=== PATIENT | female | born 1990 | race African-American/Black ===

== ENCOUNTER → 2016-12-26 | Outpatient (CLI) | payer MEDICAID ==
[~2016-12-26] MED LIST: CLAR5CHW; DEPO-PROVERA; IBUP600T26 PO; PRENTAB44 PO; PROV90AE; REME15TA
== END | disposition home or self-care (01) ==
LOC: M OUTALCOH 08:54
PROVIDERS: ATTEND Psychiatry & Neurology Psychiatry
DX: Z13.9 Encounter for screening, unspecified (principal); F14.10 Cocaine abuse, uncomplicated

== ENCOUNTER 2017-01-08 16:00 | Outpatient (RCR) | payer MEDICAID | END 2017-01-15 | LOC: M OUTALCOH 16:00 | PROVIDERS: ATTEND Psychiatry & Neurology Psychiatry | DX: F10.10 Alcohol abuse, uncomplicated (principal); F14.10 Cocaine abuse, uncomplicated; F12.10 Cannabis abuse, uncomplicated ==

== ENCOUNTER → 2017-03-28 | Outpatient (CLI) | payer MEDICAID | LOC: M OUTALCOH 08:14 | PROVIDERS: ATTEND Psychiatry & Neurology Psychiatry | DX: Z13.9 Encounter for screening, unspecified (principal); F14.20 Cocaine dependence, uncomplicated; F10.10 Alcohol abuse, uncomplicated; F12.10 Cannabis abuse, uncomplicated ==

== ENCOUNTER 2017-04-10 13:00 | Outpatient (RCR) | payer MEDICAID | END 2017-04-17 | LOC: M OUTALCOH 13:00 | PROVIDERS: ATTEND Psychiatry & Neurology Psychiatry | DX: F14.20 Cocaine dependence, uncomplicated (principal); F10.10 Alcohol abuse, uncomplicated; F12.10 Cannabis abuse, uncomplicated ==

== ENCOUNTER → 2017-05-17 | Outpatient (RCR) | payer MEDICAID ==
[~2017-05-17] MED LIST changes: +IBUP-1022 PO; -IBUP600T26 PO
== END ==
LOC: M OUTALCOH 04-24 16:00
PROVIDERS: ATTEND Psychiatry & Neurology Psychiatry
DX: F14.20 Cocaine dependence, uncomplicated (principal); F10.10 Alcohol abuse, uncomplicated; F12.10 Cannabis abuse, uncomplicated

== ENCOUNTER 2017-06-13 14:00 | Outpatient (RCR) | payer MEDICAID | END 2017-06-17 | LOC: M OUTALCOH 14:00 | PROVIDERS: ATTEND Psychiatry & Neurology Psychiatry | DX: F14.20 Cocaine dependence, uncomplicated (principal); F10.10 Alcohol abuse, uncomplicated; F12.10 Cannabis abuse, uncomplicated ==

== ENCOUNTER → 2017-10-09 | Outpatient (REF) | payer OTHER | LOC: M LAB REF 16:34 | PROVIDERS: ATTEND Surgery | DX: Z20.2 Contact with and (suspected) exposure to infections with a predominantly sexual mode of transmission (principal) ==

== ENCOUNTER → 2017-10-29 | Outpatient (CLI) | payer OTHER ==
[~2017-10-29] MED LIST changes: +GASTROGRAFIN SOLUTION 30ML (Q9963) As Ordered ONE; +ISOVUE-370 76% 100ML VIAL (Q9967) As Ordered ONE
[2017-10-29 11:58] LABS: BASO # 0.1 10^3/uL (0.0-0.2); BASO % 1.2 % (0.0-1.0); EOS # 0.2 10^3/uL (0.0-0.50); EOS % 4.6 % (0.0-3.0); IMMATURE GRANULOCYTE % 0.2 % (0-0); LYMPH # 1.7 10^3/uL (1.5-6.5); LYMPH % 41.7 % (24.0-44.0); MEAN CORPUSCULAR HEMOGLOBIN 33.8 pg (27.0-33.0); MEAN CORPUSCULAR HGB CONC 33.5 g/dl (32.0-36.5); MEAN CORPUSCULAR VOLUME 100.9 fl (80.0-96.0); MONO # 0.3 10^3/uL (0.0-0.8); MONO % 7.8 % (0.0-5.0); NEUTROPHILS # 1.8 10^3/uL (1.8-7.7); NEUTROPHILS % 44.5 % (36.0-66.0); PLATELET COUNT, AUTOMATED 245 10^3/uL (150-450); RED CELL DISTRIBUTION WIDTH 14.9 % (11.5-14.5); WHITE BLOOD COUNT 4.1 10^3/uL (4.0-10.0)
[2017-10-29 12:34] LABS: ALBUMIN 3.5 GM/DL (3.2-5.2); ALBUMIN/GLOBULIN RATIO 1.03 (1.00-1.93); ALKALINE PHOSPHATASE 51 U/L (45-117); ALT/SGPT 22 U/L (12-78); ANION GAP 9 MEQ/L (8-16); AST/SGOT 7 U/L (7-37); BILIRUBIN,TOTAL 0.3 MG/DL (0.2-1.0); BLOOD UREA NITROGEN 10 MG/DL (7-18); CALCIUM LEVEL 8.7 MG/DL (8.5-10.1); CARBON DIOXIDE LEVEL 25 MEQ/L (21-32); CHLORIDE LEVEL 107 MEQ/L (98-107); CREATININE FOR GFR 0.68 MG/DL (0.55-1.02); GLOMERULAR FILTRATION RATE > 60.0 (>60); GLUCOSE, FASTING 84 MG/DL (70-105); POTASSIUM SERUM 4.3 MEQ/L (3.5-5.1); SODIUM LEVEL 141 MEQ/L (136-145); TOTAL PROTEIN 6.9 GM/DL (6.4-8.2)
[2017-10-29 12:37] LABS: CARCINOEMBRYONIC ANTIGEN 1.3 NG/ML (<2.5)
--- NOTE | 2017-10-29 14:59 | REP ---
CT of the abdomen and pelvis with IV and bowel contrast: Comparison is 12/11 2006. The visualized lung lyles are unremarkable. The hepatic parenchyma, gallbladder, pancreas and spleen are unremarkable. The adrenals, kidneys and abdominal aorta are unremarkable. There is no bowel distension or obstruction. Mesentery is unremarkable. The appendix has a normal appearance. Pelvis: The uterus and adnexa are unremarkable. There are no adnexal masses or cysts, particularly on the left. There is no ascites. The urinary bladder is markedly distended. There is a air / gas in the rectum and vaginal vault. Impression: Essentially negative CT study of the abdomen and pelvis except for markedly distended bladder. There are no adnexal masses or cysts. No bowel distension or obstruction. The appendix has a normal appearance. The gallbladder is unremarkable. Signed by Steve Redd MD 10/29/2017 02:51 P
== END ==
LOC: M LAB 10:53
PROVIDERS: ATTEND Physician Assistant Medical
DX: R19.04 Left lower quadrant abdominal swelling, mass and lump (principal)

== ENCOUNTER → 2017-10-31 | Outpatient (REF) | payer OTHER ==
[~2017-10-31] MED LIST changes: -GASTROGRAFIN SOLUTION 30ML (Q9963) As Ordered ONE; -ISOVUE-370 76% 100ML VIAL (Q9967) As Ordered ONE
== END ==
LOC: M LAB REF 13:33
PROVIDERS: ATTEND Physician Assistant Medical
DX: R33.8 Other retention of urine (principal)

== ENCOUNTER → 2018-01-14 | Outpatient (REF) | payer OTHER ==
[2018-01-14 18:55] LABS: LITHIUM LEVEL 0.27 MEQ/L (0.60-1.20)
== END ==
LOC: M LAB REF 16:23
DX: Z51.81 Encounter for therapeutic drug level monitoring (principal)

== ENCOUNTER → 2018-06-12 | Outpatient (REF) | payer OTHER ==
[2018-06-12 13:36] LABS: AMORPHOUS SEDIMENT SMALL (NEGATIVE); APPEARANCE, URINE CLOUDY (CLEAR); BACTERIA, URINE AUTO 1+ (NEGATIVE); BILIRUBIN, URINE AUTO NEGATIVE (NEGATIVE); BLOOD, URINE BLOOD 2+ (NEGATIVE); COLOR, URINE YELLOW (YELLOW); GLUCOSE, URINE (UA) AUTO NEGATIVE (NEGATIVE); KETONE, URINE AUTO NEGATIVE (NEGATIVE); LEUKOCYTE ESTERASE, URINE AUTO 3+ (NEGATIVE); MUCUS, URINE SMALL (NEGATIVE); NITRITE, URINE AUTO NEGATIVE (NEGATIVE); PROTEIN, URINE AUTO 2+ mg/dL (NEGATIVE); RBC, URINE AUTO 57 /HPF (0-3); SPECIFIC GRAVITY URINE AUTO 1.027 (1.002-1.035); SQUAMOUS EPITHELIAL CELL UR AU 5 /HPF (0-6); TRANSITIONAL EPITHELIAL AUTO 11 /HPF; UROBILINOGEN, URINE AUTO 0.2 mg/dL (0.0-2.0); WBC, URINE AUTO TNTC /HPF (0-3)
== END ==
LOC: M LAB REF 13:05
DX: N39.0 Urinary tract infection, site not specified (principal)

== ENCOUNTER → 2019-03-31 | Outpatient (REF) | payer OTHER ==
[2019-03-31 19:15] LABS: APPEARANCE, URINE CLEAR (CLEAR); BACTERIA, URINE AUTO NEGATIVE (NEGATIVE); BILIRUBIN, URINE AUTO NEGATIVE (NEGATIVE); BLOOD, URINE BLOOD NEGATIVE (NEGATIVE); COLOR, URINE YELLOW (YELLOW); GLUCOSE, URINE (UA) AUTO NEGATIVE (NEGATIVE); KETONE, URINE AUTO NEGATIVE (NEGATIVE); LEUKOCYTE ESTERASE, URINE AUTO NEGATIVE (NEGATIVE); NITRITE, URINE AUTO NEGATIVE (NEGATIVE); PROTEIN, URINE AUTO NEGATIVE (NEGATIVE); RBC, URINE AUTO 0 /HPF (0-3); SPECIFIC GRAVITY URINE AUTO 1.015 (1.002-1.035); SQUAMOUS EPITHELIAL CELL UR AU 2 /HPF (0-6); UROBILINOGEN, URINE AUTO 0.2 mg/dL (0.0-2.0); WBC, URINE AUTO 1 /HPF (0-3)
== END ==
LOC: M LAB REF 17:31
PROVIDERS: ATTEND Nurse Practitioner Family
DX: Z13.9 Encounter for screening, unspecified (principal)

== ENCOUNTER → 2019-04-28 | Outpatient (REF) | payer OTHER ==
[2019-04-28 18:23] LABS: BASO # 0.1 10^3/uL (0.0-0.2); BASO % 1.3 % (0.0-1.0); EOS # 0.4 10^3/uL (0.0-0.50); EOS % 9.4 % (0.0-3.0); HEMATOCRIT 42.4 % (36.0-47.0); HEMOGLOBIN 14.1 g/dl (12.0-15.5); LYMPH # 2.1 10^3/uL (1.5-4.5); LYMPH % 54.2 % (24.0-44.0); MEAN CORPUSCULAR HGB CONC 33.3 g/dl (32.0-36.5); MEAN CORPUSCULAR VOLUME 102.2 fl (80.0-96.0); MONO # 0.2 10^3/uL (0.0-0.8); MONO % 5.1 % (0.0-5.0); NEUTROPHILS # 1.2 10^3/uL (1.8-7.7); PLATELET COUNT, AUTOMATED 264 10^3/uL (150-450); RED BLOOD COUNT 4.15 10^6/uL (4.00-5.40); WHITE BLOOD COUNT 3.9 10^3/uL (4.0-10.0)
[2019-04-28 18:34] LABS: ALBUMIN 3.8 GM/DL (3.2-5.2); ALT/SGPT 14 U/L (12-78); BILIRUBIN,TOTAL 0.3 MG/DL (0.2-1.0); BLOOD UREA NITROGEN 6 MG/DL (7-18); CARBON DIOXIDE LEVEL 24 MEQ/L (21-32); CHLORIDE LEVEL 108 MEQ/L (98-107); CHOLESTEROL LEVEL 163 MG/DL (<200); CHOLESTEROL RISK RATIO 2.716 (<5); CREATININE FOR GFR 0.87 MG/DL (0.55-1.30); FREE T4 0.86 NG/DL (0.76-1.46); GLOMERULAR FILTRATION RATE > 60.0 (>60); GLUCOSE, FASTING 98 MG/DL (70-100); HDL CHOLESTEROL 60 MG/DL (>40); LDL CHOLESTEROL 78 MG/DL (<100); NON-HDL-C 103 MG/DL; POTASSIUM SERUM 4.1 MEQ/L (3.5-5.1); SODIUM LEVEL 139 MEQ/L (136-145); THYROID STIMULATING HORMONE 0.206 uIU/ML (0.358-3.740); TOTAL PROTEIN 7.5 GM/DL (6.4-8.2); TRIGLYCERIDES LEVEL 125 MG/DL (<150)
[2019-04-28 18:35] LABS: TOTAL 25(OH) VITAMIN D 17.4 NG/ML (30.0-100.0)
[2019-04-28 19:42] LABS: HEMOGLOBIN A1c 4.9 %
== END ==
LOC: M LAB REF 17:01
PROVIDERS: ATTEND Nurse Practitioner Family
DX: Z13.9 Encounter for screening, unspecified (principal)

== ENCOUNTER 2019-08-01 07:11 | Emergency (ER) | payer OTHER ==
[~2019-08-01] VITALS: Ht 157.5 cm; Wt 50.0 kg
[2019-08-01] MEDS ORDERED: WELLTAB40 PO (07:23)
[2019-08-01] MEDS ORDERED: GABA800T4 PO (07:23)
[2019-08-01] MEDS ORDERED: OLAN10TA2 PO (07:23)
[2019-08-01] MEDS ORDERED: TRAZ1TAB14 PO (07:23)
[2019-08-01] MEDS ORDERED: mirtazapine (07:23)
[2019-08-01] MEDS ORDERED: ACETAMINOPHEN 325 MG TAB PO ONE (08:00)
--- NOTE | 2019-08-01 09:46 | REP ---
CT BRAIN WITHOUT CONTRAST: REASON: Trauma. COMPARISON: 12/09/2015 TECHNIQUE: 4.5 mm contiguous transaxial sections were obtained from the skull base to the cerebral convexities with thin cuts through the posterior fossa without the administration of intravenous contrast. FINDINGS: The ventricles and sulci are consistent with the patient's age. There are no extra-axial fluid collections. There is no mass effect. The deep cerebral white matter is consistent with the patient's age. The orbital and petrous structures , cerebellopontine angles, and posterior fossa are unremarkable. The sella turcica, cavernous, and paracavernous structures are essentially unremarkable. The visualized portions of the paranasal sinuses and mastoid air cells are clear. Images of the skull base show no gross abnormality. IMPRESSION: Essentially unremarkable CT examination of the brain. No change. Electronically Signed by Wicho Monique DO 08/01/2019 09:49 A
--- NOTE | 2019-08-01 09:47 | REP ---
REASON: Pain in the neck. Vertebral body height and alignment is within normal limits. The facet joints are well aligned bilaterally. The disc spaces are symmetric and well maintained. There is no acute fracture. There is no abnormal paraspinal soft tissue swelling. IMPRESSION: CT findings are within normal limits. Electronically Signed by Wicho Monique DO 08/01/2019 09:49 A
[2019-08-01 10:30] VITALS: BP 99/65
[2019-08-01] MEDS ORDERED: IBUP80TA PO (10:35)
[2019-08-01] MEDS ORDERED: PROAAER10 INH (10:40)
--- NOTE | 2019-08-01 10:57 | REP ---
KNEE: REASON: Pain, possible patellar fracture. FINDINGS: The compartments are symmetric and relatively well maintained. There is no acute fracture or destructive osseous lesion. Electronically Signed by Wicho Monique DO 08/01/2019 11:24 A
--- NOTE | 2019-08-01 10:58 | REP ---
REASON: Pain. FINDINGS: No acute fracture or destructive osseous lesion. Electronically Signed by Wicho Monique DO 08/01/2019 11:24 A
== END 2019-08-01 10:53 | disposition home or self-care (01) ==
LOC: M ED 07:11
DX: R51 Headache (principal); M79.631 Pain in right forearm; M25.561 Pain in right knee; M25.552 Pain in left hip; Z72.89 Other problems related to lifestyle; V17.4XXA Pedal cycle driver injured in collision with fixed or stationary object in traffic accident, initial encounter; Y92.410 Unspecified street and highway as the place of occurrence of the external cause; R42 Dizziness and giddiness; H53.2 Diplopia; J45.909 Unspecified asthma, uncomplicated; H57.89 Other specified disorders of eye and adnexa; Z87.828 Personal history of other (healed) physical injury and trauma; F17.200 Nicotine dependence, unspecified, uncomplicated; Z79.899 Other long term (current) drug therapy

== ENCOUNTER 2019-08-05 03:08 | Emergency (ER) | payer OTHER ==
[~2019-08-05] VITALS: Ht 157.5 cm; Wt 50.0 kg
[~2019-08-05 03:08] MED LIST changes: +GABA800T4; +IBUP80TA PO; +OLAN10TA2; +PROAAER10 INH; +TRAZ1TAB14; +WELLTAB40; +mirtazapine
[2019-08-05 03:10] VITALS: BP 108/69
== END 2019-08-05 04:45 | disposition left against medical advice (07) ==
LOC: M ED 03:08
DX: M25.561 Pain in right knee (principal); J45.909 Unspecified asthma, uncomplicated; F17.200 Nicotine dependence, unspecified, uncomplicated; Z79.899 Other long term (current) drug therapy

== ENCOUNTER 2019-10-21 16:10 | Inpatient (IN) | payer OTHER ==
[~2019-10-21] VITALS: Ht 157.5 cm; Wt 49.4 kg
[~2019-10-21 16:10] MED LIST changes: -GABA800T4; +GABA800T4 PO; -OLAN10TA2; +OLAN10TA2 PO; -TRAZ1TAB14; +TRAZ1TAB14 PO; -WELLTAB40; +WELLTAB40 PO
[2019-10-21] MEDS ORDERED: BENZ-52 PO (16:15)
[2019-10-21] MEDS ORDERED: VANCOMYCIN HCL 1,000 MG, VIAL MATE ADAPTER 1 EACH in D5W 250 ML IV ONE (16:30)
[2019-10-21] MEDS ORDERED: NS 1,400 ML in IV 1 EA IV ONE (16:30)
[2019-10-21] MEDS ORDERED: KETOROLAC 30 MG/ML VIAL (J1885) IV ONE (16:45)
[2019-10-21 17:04] LABS: BASO # 0.1 10^3/uL (0.0-0.2); BASO % 0.5 % (0.0-1.0); EOS # 0.3 10^3/uL (0.0-0.5); EOS % 2.9 % (0.0-3.0); HEMATOCRIT 43.5 % (36.0-47.0); HEMOGLOBIN 14.2 g/dl (12.0-15.5); LYMPH # 1.9 10^3/uL (1.5-5.0); LYMPH % 18.9 % (24.0-44.0); MEAN CORPUSCULAR HGB CONC 32.6 g/dl (32.0-36.5); MEAN CORPUSCULAR VOLUME 101.2 fl (80.0-96.0); MONO # 0.5 10^3/uL (0.0-0.8); MONO % 4.9 % (0.0-5.0); NEUTROPHILS # 7.4 10^3/uL (1.5-8.5); NEUTROPHILS % 72.5 % (36.0-66.0); PLATELET COUNT, AUTOMATED 506 10^3/uL (150-450); WHITE BLOOD COUNT 10.3 10^3/uL (4.0-10.0)
--- NOTE | 2019-10-21 17:08 | REP ---
Clinical: Sepsis. Shock. . Comparison: 01/29/2006 . Findings: The mediastinum and cardiac silhouette are stable and within normal limits for portable technique. The lung lyles are clear without acute consolidation, effusion, or pneumothorax. Skeletal structures are intact. Impression: No acute cardiopulmonary process appreciated. Electronically Signed by Genaro Winters MD 10/21/2019 04:59 P
[2019-10-21] MEDS ORDERED: LORA-436 PO (17:31)
[2019-10-21] MEDS ORDERED: MIRT1TAB17 PO (17:31)
[2019-10-21] MEDS ORDERED: VENTAER INH (17:31)
[2019-10-21 17:55] LABS: ERYTHROCYTE SEDIMENTATION RATE 56 mm/hr (0-20)
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
[2019-10-21 18:20] LABS: VENOUS BASE EXCESS -3.5 (-2.0-2.0); VENOUS HCO3 21.5 MEQ/L (23.0-27.0); VENOUS O2 SATURATION 93.2 % (60.0-80.0); VENOUS PARTIAL PRESSURE CO2 38.8 mmHg (38.0-50.0); VENOUS PARTIAL PRESSURE O2 63.7 mmHg (30.0-50.0); VENOUS PH 7.361 UNITS (7.330-7.430); VENOUS STANDARD HCO3 21.5 MEQ/L; VENOUS TOTAL CO2 22.7 MEQ/L (24.0-28.0)
--- NOTE | 2019-10-21 19:18 | REP ---
Clinical: Central line placement . Comparison: 10/21/2019 at 04:52 p.m. . Findings: Right IJ line with tip in the SVC. The mediastinum and cardiac silhouette are stable and within normal limits for portable technique. The lung lyles are clear without acute consolidation, effusion, or pneumothorax. Skeletal structures are intact. Impression: No acute cardiopulmonary process appreciated. Electronically Signed by Genaro Winters MD 10/21/2019 07:09 P
--- NOTE | 2019-10-21 19:28 | ROOPDOC ---
[facility] Report Of Operation Report of Operation DATE OF PROCEDURE: 10/21/19 PREPROCEDURE DIAGNOSES: Poor venous access POSTPROCEDURE DIAGNOSES: Poor venous access PROCEDURE: Right IJ central line placement Performed by: Tia Jovel D.O. Attending: Julian Lockett M.D. ANESTHESIA: local ESTIMATED BLOOD LOSS: Approximately 0 mL. COMPLICATIONS: none PROCEDURE NOTE: Consent was obtained prior to the procedure. Indications, risks and benefits were explained to the patient. Procedure was performed at bedside in the emergency department. DESCRIPTION OF PROCEDURE: The patient was placed in the supine position, was placed in Trendelenburg. The right chest region and neck was prepped with chlorhexidine scrub. The patient was draped in the typical sterile fashion using a full drape. Ultrasonography was employed at bedside. A sterile probe cover was placed over the ultrasound. The medial and lateral head of the sternocleidomastoid were identified, as was the carotid pulse. The internal jugular vein was identified using ultrasound. Anesthesia was achieved over the internal jugular vein on the right using a 1% lidocaine solution. Once anesthetized, an introducer needle was inserted into the internal jugular vein under direct ultrasound visualization. Venous blood was withdrawn, syringe was removed and a guidewire was advanced on to the introducer needle. The guidewire was visualized in the internal jugular vein by ultrasound. A small incision was made in the skin surface with a scalpel, and the introducer needle was exchanged for a dilator over the guidewire. After appropriate dilation was obtained, the dilator was exchanged over the wire for a central venous catheter. The wire was removed, and the catheter was sutured in place. A sterile bandage was placed over the catheter site. The patient tolerated the procedure well without any hemodynamic compromise. At the time of procedure completion, all ports were aspirated and flushed properly. Postprocedure x-ray was performed, which demonstrated adequate positioning of the central venous catheter in the right internal jugular vein. GME ATTESTATION GME ATTESTATION My faculty preceptor for this patient encounter was physically present during the encounter and was fully available. All aspects of the patient interview, examination, medical decision making process, and medical care plan development were reviewed and approved by the faculty preceptor. The faculty preceptor is aware and concurs with the plan as stated in the body of this note and will attest to such by his/her cosignature. TIA JOVEL D.O. Oct 21, 2019 19:28
[2019-10-21] MEDS ORDERED: MORPHINE 2 MG/ML 1ML VIAL (J2270) IV PRN (19:30)
--- NOTE | 2019-10-21 19:34 | HPEPDOC ---
[facility] Medical History & Physical Date of Admission Oct 21, 2019 Date of Service: Oct 21, 2019 Attending Physician: ALYSSA GARCIA MD History and Physical CHIEF COMPLAINT: Left arm pain and swelling HISTORY OF PRESENT ILLNESS: 29-year-old female with past medical history of IV drug use, anemia, presents from home with arm pain and swelling after attempting IV drug use a few weeks ago. She reports it was her first time doing IV drugs, 3 weeks ago, she missed her veins and injected into her skin, multiple locations in both arms. She reports worsening left arm pain, swelling and tightness with associated numbness and tingling in the fingertips starting a few days ago along with chills. She denies any fever, denies history of bacteremia or endocarditis. She denies any short of breath, chest pain, nausea, vomiting, abdominal pain or diarrhea at this time. 10 point review of system is negative except for above PAST MEDICAL HISTORY: 1. Anemia. 2. IV drug use. 3. Partial substance-abuse. PAST SURGICAL HISTORY: 1. 3. SOCIAL HISTORY: Smokes couple cigarettes daily. Denies alcohol use. Does dean, previously did cocaine. FAMILY HISTORY: Mother with malignancy ALLERGIES: Please see below. HOME MEDICATIONS: Please see below. PHYSICAL EXAMINATION: VITAL SIGNS: Please see below. GENERAL: Mild distress HEENT: Normocephalic, atraumatic, dry mucous membranes NECK: Supple CARDIOVASCULAR EXAMINATION: Tachycardic RESPIRATORY EXAMINATION: Clear to auscultation, no wheezing ABDOMINAL EXAMINATION: Soft, nontender, nondistended, positive bowel sounds EXTREMITIES: Left forearm with diffuse swelling, erythema and tenderness to palpation with multiple track noble, no drainage SKIN: As listed above NEUROLOGICAL EXAMINATION: Alert and oriented 3, no focal deficits PSYCHIATRIC EXAMINATION: Calm and cooperative LABORATORY DATA: See below. IMAGING: Left arm ultrasound with diffuse edema, no abscess MICROBIOLOGY: Please see below. ASSESSMENT: 29-year-old female with past medical history of polysubstance abuse, IV drug use, anemia, presents with diffuse left upper extremity cellulitis after IV drug use a few weeks ago. PLAN: 1. Cellulitis. History of IV drug use, diffuse left upper extremity with significant tenderness to palpation, ultrasound without abscess, MRI pending, vancomycin and Zosyn, cultures pending, IV fluids. 2. Anxiety/depression. Continue home meds DVT per flexes: Heparin subcutaneous GI prophylaxis: Not needed Vital Signs Vital Signs Date Time Temp Pulse Resp B/P (MAP) Pulse Ox O2 Delivery O2 Flow Rate FiO2 10/21/19 16:49 10/21/19 16:10 96.0 120 20 99 Laboratory Data Labs 24H Laboratory Tests 2 10/21/19 16:42: Immature Granulocyte % (Auto) 0.3, Neutrophils (%) (Auto) 72.5H, Lymphocytes (%) (Auto) 18.9L, Monocytes (%) (Auto) 4.9, Eosinophils (%) (Auto) 2.9, Basophils (%) (Auto) 0.5, Neutrophils # (Auto) 7.4, Lymphocytes # (Auto) 1.9, Monocytes # (Auto) 0.5, Eosinophils # (Auto) 0.3, Basophils # (Auto) 0.1, Nucleated Red Blood Cells % (auto) 0.0, Erythrocyte Sedimentation Rate 56H, Lactic Acid Level 2.1*H 10/21/19 18:03: Blood Gas Bicarbonate Standard 21.5, Venous Blood pH 7.361, Venous Blood Partial Pressure CO2 38.8, Venous Blood Partial Pressure O2 63.7H, Venous Blood Total Carbon Dioxide 22.7L, Venous Blood HCO3 21.5L, Venous Blood Oxygen Saturation 93.2H, Venous Blood Base Excess -3.5L CBC/BMP Laboratory Tests 10/21/19 16:42 Microbiology Microbiology 10/21/19 Blood Culture, Received Pending 10/21/19 Blood Culture, Received Pending Home Medications Scheduled Benztropine Mesylate (Benztropine Mesylate) 1 Mg Tablet, 1 MG PO QHS Bupropion HCl (Wellbutrin Xl) 300 Mg Tab.er.24h, 300 MG PO DAILY Gabapentin (Gabapentin) 800 Mg Tablet, 800 MG PO TID Loratadine (Loratadine) 10 Mg Tablet, 10 MG PO DAILY Mirtazapine (Mirtazapine) 45 Mg Tab.rapdis, 45 MG PO QHS Olanzapine (Olanzapine) 10 Mg Tablet, 10 MG PO QHS Trazodone HCl (Trazodone HCl) 150 Mg Tablet, 150 MG PO QHS Scheduled PRN Albuterol Sulfate (Ventolin Hfa) 18 Gm Hfa.aer.ad, 2 PUFF INH Q4H PRN for SOB/WHEEZING Allergies Coded Allergies: No Known Allergies (Verified , 12/12/06) A-FIB/CHADSVASC A-FIB History Current/History of A-Fib/PAF?: No ALYSSA GARCIA MD Oct 21, 2019 19:34
[2019-10-21 20:45] VITALS: BP 126/64
[2019-10-21] MEDS: GABAPENTIN 400 MG CAP PO SCH (22:20)
[2019-10-21] MEDS: ENOXAPARIN 40 MG/0.4 ML SYRINGE (J1650) SC SCH (22:20)
[2019-10-21] MEDS: traZODone 50 MG TAB PO SCH (22:20)
[2019-10-21] MEDS: PIPERACILLIN/TAZOBACTAM SOD 3.375 GM in D5W MINI-BAG PLUS 50 ML IV SCH (22:20)
[2019-10-21 22:35] LABS: ALBUMIN 3.4 GM/DL (3.2-5.2); ALT/SGPT 28 U/L (12-78); BILIRUBIN,DIRECT < 0.1 MG/DL (0.0-0.2); BILIRUBIN,TOTAL 0.2 MG/DL (0.2-1.0); BLOOD UREA NITROGEN 5 MG/DL (7-18); C REACTIVE PROTEIN QUANTITATIV 5.34 MG/DL (0.00-0.30); CALCIUM LEVEL 8.8 MG/DL (8.5-10.1); CARBON DIOXIDE LEVEL 25 MEQ/L (21-32); CHLORIDE LEVEL 108 MEQ/L (98-107); CREATININE FOR GFR 0.85 MG/DL (0.55-1.30); GLOMERULAR FILTRATION RATE > 60.0 (>60); GLUCOSE, FASTING 81 MG/DL (70-100); POTASSIUM SERUM 4.3 MEQ/L (3.5-5.1); SODIUM LEVEL 139 MEQ/L (136-145)
--- NOTE | 2019-10-21 22:42 | PHACANCOPD ---
PHARMACY VANCOMYCIN DOSING Pt Demographics Demographics Patient Age:29 , Weight:47.700 , Gender: female Adjusted Body Weight Date: 10/21/19, Adjusted Body Weight: Kg Events Past 24 Hours Events Past 24 Hours: NO: Dialysis, Diuretic Therapy, Change in CrCl, Fever, Elevation in WBC, Pending Diagnostics, Pending Procedures, Other Vancomycin Vancomycin Target Ranges: 15-20 mcg/ml Vancomycin Load Y/N: Yes Load Dose Date Time Vancomycin Load Dose: 1000mg Date: 10-21 Time: 1900 Vancomycin Dose Date: 10/21/19. Current Vancomycin Dose: [750mg q8h] Intermittent Dosing?: No Labs Labs Item Value Date Time White Blood Count 10.3 10^3/uL H 10/21/19 1642 Glomerular Filtration Rate > 60.0 10/21/19 1803 Creatinine 0.85 MG/DL 10/21/19 1803 Blood Urea Nitrogen 5 MG/DL L 10/21/19 1803 Vital Signs Label Value Date Time Patient Temperature 98.5 degrees F 10/21/192044 Temperature Source Temporal 10/21/192044 Micro Microbiology 10/21/19 Blood Culture, Received Pending 10/21/19 Blood Culture, Received Pending Creatinine Clearance Date:10/21/19. Creatinine Clearance: [~80]. Pending Labs Trough - @1900 Assessment and Plan Maintaining Current Dose?: Yes Reason for dose change: No Dose Change Pharmacist Note Pharmacist Note Date: 10/21/19. Pharmacist note:Will monitor and make adjustments as needed. SHAKEEL SHAFFER [facility]ARMAC[facility] Oct 21, 2019 22:42
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
[2019-10-21] MEDS: OLANZapine 10 MG TAB PO SCH (22:58)
[2019-10-21] MEDS: BENZTROPINE 1 MG TAB PO SCH (22:59)
[2019-10-22] VITALS (7 sets, daily range): BP systolic 90–112; BP diastolic 40–68
[2019-10-22] MEDS: PIPERACILLIN/TAZOBACTAM SOD 3.375 GM in D5W MINI-BAG PLUS 50 ML IV SCH ×4 (03:03→22:06)
[2019-10-22] MEDS: VANCOMYCIN HCL 750 MG, VIAL MATE ADAPTER 1 EACH in D5W 250 ML IV SCH ×3 (04:09→20:46)
[2019-10-22] MEDS: SODIUM CHLORIDE 0.9% INJ 10 ML SYR IV SCH ×3 (05:29→23:43)
[2019-10-22] MEDS ORDERED: KETOROLAC 30 MG/ML VIAL (J1885) IV ONE (05:30)
[2019-10-22 05:42] LABS: HEMATOCRIT 36.1 % (36.0-47.0); MEAN CORPUSCULAR HEMOGLOBIN 32.2 pg (27.0-33.0); MEAN CORPUSCULAR HGB CONC 31.9 g/dl (32.0-36.5); MEAN CORPUSCULAR VOLUME 101.1 fl (80.0-96.0); PLATELET COUNT, AUTOMATED 427 10^3/uL (150-450); RED BLOOD COUNT 3.57 10^6/uL (4.00-5.40); WHITE BLOOD COUNT 11.9 10^3/uL (4.0-10.0)
[2019-10-22 05:47] LABS: HEMOGLOBIN 11.5 g/dl (12.0-15.5)
[2019-10-22 06:13] LABS: ALBUMIN 2.7 GM/DL (3.2-5.2); ALT/SGPT 21 U/L (12-78); BILIRUBIN,TOTAL 0.4 MG/DL (0.2-1.0); BLOOD UREA NITROGEN 5 MG/DL (7-18); CALCIUM LEVEL 7.9 MG/DL (8.5-10.1); CARBON DIOXIDE LEVEL 24 MEQ/L (21-32); CHLORIDE LEVEL 111 MEQ/L (98-107); CREATININE FOR GFR 0.94 MG/DL (0.55-1.30); GLOMERULAR FILTRATION RATE > 60.0 (>60); GLUCOSE, FASTING 118 MG/DL (70-100); MAGNESIUM LEVEL 2.1 MG/DL (1.8-2.4); POTASSIUM SERUM 4.2 MEQ/L (3.5-5.1); SODIUM LEVEL 142 MEQ/L (136-145); TOTAL PROTEIN 6.3 GM/DL (6.4-8.2)
[2019-10-22] MEDS: LORATADINE 10 MG TAB PO SCH (08:22)
[2019-10-22] MEDS: GABAPENTIN 400 MG CAP PO SCH ×3 (08:22→20:02)
[2019-10-22] MEDS: buPROPion **XL** TABLET 150MG (WELLBUTRIN XL) PO SCH (08:22)
[2019-10-22] MEDS: SODIUM CHLORIDE 0.9% INJ 10 ML SYR IV PRN (08:25)
[2019-10-22] MEDS: LR 1,000 ML IV SCH ×2 (08:51→17:11)
--- NOTE | 2019-10-22 14:29 | CR ---
DATE OF CONSULTATION: 10/22/2019 CONSULTATION REQUESTANT: HISTORY OF PRESENT ILLNESS: This is a 29-year-old female was admitted yesterday for a chief complaint of left arm pain and swelling which she reports progressed over the last 3 days uneventfully. She has a history of IV drug use, she reports her first attempt to use IV drugs was 3 weeks ago. States that she injected multiple locations in both of her arms. She is reporting increased pain, swelling at the hand, forearm and beyond her elbow. States there is tingling in her fingers but she can feel them. She was evaluated by Dr. Julian Lockett, on 10/21/2019. ALLERGIES: None known to drugs. PAST MEDICAL HISTORY: Polysubstance abuse. IV drug use, although she states her first IV drug use was just 3 weeks ago. Anemia. Pelvic inflammatory disease. Asthma. Pneumonia. Depression. Anxiety. Alcohol abuse. She is a smoker. Dry skin. Documented history of Methicillin-resistant Staphylococcus aureus (MRSA) back 2013. Psychiatric problems, schizophrenia. PAST SURGICAL HISTORY: Includes: Colposcopy on 11/18/2006 due to abnormal Pap smear. 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 SOCIAL HISTORY: Includes poly drug abuse, although states 3 weeks ago she was a first-time IV drug user. Smokes cigarettes daily. Denies ethanol intake. She has three children and lives locally. HOME MEDICATIONS: Include: - albuterol sulfate 18 gm HFA.AER.AD 2 puffs INH q.4 h p.r.n. - benztropine mesylate 1 mg tablet 1 mg p.o. q.h.s. - Wellbutrin XL 300 mg tab ER 24 hours 300 mg p.o. daily - gabapentin 800 mg p.o. t.i.d. - loratadine 10 mg p.o. daily - mirtazapine 45 mg p.o. q.h.s. - olanzapine 10 mg p.o. q.h.s. - trazodone HCL 150 mg p.o. q.h.s. REVIEW OF SYSTEMS: A 10-point review of system was negative except for what was noted in history and physical. The patient denies fever, chills, malaise, shortness of breath, dyspnea on exertion, chest pain, nausea, vomiting, abdominal pain, diarrhea or history of sepsis. As of 10/21/2019 white count 10.3, RBC 4.30, hemoglobin 14.2. Hematocrit 43.5. MCV 101.2. MCH 33.0. MCHC 32.6. RDW 13.6. Platelet count 506. Immature gran percentage auto 0.3. Neutrophil percentage auto 72.5. Lymph percentage 18.9. [place] percentage 4.9. Eosinophil percentage 2.9. Basophil percentage 0.5. Neutrophil number 7.4. Lymph number 1.9. [place] number 0.5. Eosinophil number 0.3. Baso number 0.1. Nucleated RBC percentage is 0.0. ESR 56. Subsequent labs on 10/22/2019 showed elevated white count 11.9. RBC 3.57. Hemoglobin 11.5. Hematocrit 36.1. MCV 101.1. MCH 32.2. MCHC 31.9. RDW 13.6. Platelet count 427. Blood gas bicarb standard 21.5. VBG pH 7.361. PCO2 38.8. PO2 63.7. HCO3 21.5. Total CO2 is 22.7. O2 saturation 93.2. Base excess -3.7. Chemistry sodium 142, potassium 4.2. Chloride 111, carbon dioxide 24. Anion gap 7, BUN 5, creatinine 0.94, GFR greater than 60. Fasting glucose 118. Calcium 7.9. Magnesium 2.1, total bilirubin 0.4. AST 5, ALT 21, alkaline phosphatase 78. Total protein 6.3, albumin 2.7, albumin-globulin ratio 0.75. Microbiology pending blood cultures, that is blood venous cultures as of 10/21/2019. IMAGING STUDIES: Left arm ultrasound with diffuse edema. MRI was completed 10/21/[address] [facility] showing severe edematous cellulitis and myositis with excessive fluid accumulation throughout the imaged forearm extending both proximally and distally beyond field of imaging into the arm and wrist. Severe tenosynovitis within the superficial ventral tendinous structures predominantly involving the flexor carpi radialis, including focal fluid collection within the tendon sheath in the distal forearm with recommended orthopedic consultation as read by Dr. Meño Jimenez. PHYSICAL EXAMINATION: Vital signs as of 10/22/2019 at 1200, temperature temporal 98.7, pulse 84, respiratory rate 17, blood pressure 100/58, which is trending positive from her last blood pressure at 0800 at 90/50. Pulse oximetry 98 at room air. GENERAL: The patient is resting in bed with her left arm being favored. She was actually sleeping. It took several times to wake her up with just mild distress as she became more alert. HEENT: Normocephalic, atraumatic. NECK: Supple. CARDIOVASCULAR: Chest rises symmetrically. RESPIRATORY: Clear to auscultation. ABDOMINAL EXAMINATION: Soft, nondistended, nontender times four. Left upper extremity diffuse edema noted at the forearm and hand. She has several well demarcated old ulcer areas consistent with where there were attempts to inject. No drainage. This extremity is warm to touch. Radial pulse 2+. Brisk capillary refill. She can wiggle her fingers, flex and extend without gross antalgia or limitation. She is tender to palpation about the distal forearm, most notable about the carpal tunnel region. No pain to palpation about the elbow, which she was able to flex and extend. She was able to wrap her fingers around my index and middle finger. She has no notable contracture palsy or gross atrophy. She is intact to light touch. Bilateral comparison was made which shows contrasting lack of swelling but also additional track noble. Skin as noted. NEUROLOGIC EXAMINATION: She is alert and orientated times three without focal defect. PSYCHIATRIC EXAMINATION: She is rather calm, very cooperative, but lethargic. She denies any recent drug use. ASSESSMENT Left arm, forearm, hand pain and edema over 3 days in a 32-year-old female with past history of polysubstance abuse, IV drug use and a left upper extremity cellulitis. Question of a secondary compartment syndrome. PLAN: 1. Cellulitis. She will continue her current course of IV antibiotics, culture is pending, elevation of arm above heart level with a warm nonrestrictive heating pad. Further diagnostic considerations include compartment testing. Will continue close observation for increasing pain, increased swelling, firmness of tissues or any inkling of the six P's which would then require urgent orthopedic consultation for consideration of compartment release. 2. Blood pressure management. Thank you for allowing me to participate in Ms. Aranda's care. [facility]
--- NOTE | 2019-10-22 17:56 | ECGEPIP ---
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
--- NOTE | 2019-10-22 18:03 | IPNPDOC ---
Date Seen The patient was seen on 10/22/19. Progress Note HISTORY OF PRESENT ILLNESS: 29-year-old female with past medical history of IV drug use, anemia, presents from home with arm pain and swelling after attempting IV drug use a few weeks ago. She reports it was her first time doing IV drugs, 3 weeks ago, she missed her veins and injected into her skin, multiple locations in both arms. She reports worsening left arm pain, swelling and tightness with associated numbness and tingling in the fingertips starting a few days ago along with chills. She denies any fever, denies history of bacteremia or endocarditis. She denies any short of breath, chest pain, nausea, vomiting, abdominal pain or diarrhea at this time. 10/22/2019 Patient continues to have significant left forearm pain, swelling, along with tingling of fingertips. She has a complex at this time, tolerating diet. 10 point review of system is negative except for above PHYSICAL EXAMINATION: VITAL SIGNS: Please see below. GENERAL: No distress HEENT: Normocephalic, atraumatic, moist mucous membranes NECK: Supple CARDIOVASCULAR EXAMINATION: Tachycardic RESPIRATORY EXAMINATION: Clear to auscultation, no wheezing ABDOMINAL EXAMINATION: Soft, nontender, nondistended, positive bowel sounds EXTREMITIES: Left forearm with diffuse swelling, erythema and tenderness to palpation with multiple track noble, no drainage SKIN: As listed above NEUROLOGICAL EXAMINATION: Alert and oriented 3, no focal deficits PSYCHIATRIC EXAMINATION: Calm and cooperative LABORATORY DATA: See below. IMAGING: Left arm ultrasound with diffuse edema, no abscess MICROBIOLOGY: Please see below. ASSESSMENT: 29-year-old female with past medical history of polysubstance abuse, IV drug use, anemia, presents with diffuse left upper extremity cellulitis after IV drug use a few weeks ago. PLAN: 1. Cellulitis. History of IV drug use, diffuse left upper extremity with significant tenderness to palpation, MRI with significant edema, myositis, tenosynovitis, orthopedic surgery consulted, continue vancomycin and Zosyn, cultures pending, IV fluids. 2. Anxiety/depression. Continue home meds DVT per flexes: Lovenox GI prophylaxis: Not needed VS, I&O, 24H, Fishbone Vital Signs/I&O Vital Signs Date Time Temp Pulse Resp B/P (MAP) Pulse Ox O2 Delivery O2 Flow Rate FiO2 10/22/19 14:40 98.6 100 21 110/68 (82) 100 Room Air I&O- Last 24 Hours up to 6 AM 10/22/19 06:00 Intake Total 1665 ml Output Total 1025 ml Balance 640 ml Laboratory Data 24H LABS Laboratory Tests 2 10/21/19 18:03: Blood Gas Bicarbonate Standard 21.5, Venous Blood pH 7.361, Venous Blood Partial Pressure CO2 38.8, Venous Blood Partial Pressure O2 63.7H, Venous Blood Total Carbon Dioxide 22.7L, Venous Blood HCO3 21.5L, Venous Blood Oxygen Saturation 93.2H, Venous Blood Base Excess -3.5L, Anion Gap 6L, Glomerular Filtration Rate > 60.0, Calcium Level 8.8, Total Bilirubin 0.2, Direct Bilirubin < 0.1, Aspartate Amino Transf (AST/SGOT) 10, Alanine Aminotransferase (ALT/SGPT) 28, Alkaline Phosphatase 101, C-Reactive Protein, Quantitative 5.34H, Total Protein 8.0, Albumin 3.4, Albumin/Globulin Ratio 0.74L 10/21/19 21:22: Lactic Acid Followup at 4 Hours 1.2 10/22/19 05:32: Anion Gap 7L, Glomerular Filtration Rate > 60.0, Calcium Level 7.9L, Total Bilirubin 0.4#, Aspartate Amino Transf (AST/SGOT) 5L, Alanine Aminotransferase (ALT/SGPT) 21, Alkaline Phosphatase 78, Total Protein 6.3#L, Albumin 2.7#L, Albumin/Globulin Ratio 0.75L, Nucleated Red Blood Cells % (auto) 0.0, Magnesium Level 2.1 10/22/19 14:02: Total Creatine Kinase 102 CBC/BMP Laboratory Tests 10/21/19 18:03 10/22/19 05:32 Microbiology Microbiology 10/21/19 Blood Culture, Received Pending 10/21/19 Blood Culture - Preliminary, Resulted No growth after 24 hours . All specim... ALYSSA GARCIA MD Oct 22, 2019 18:03
--- NOTE | 2019-10-22 18:16 | IPN ---
DATE OF CONSULTATION: 10/22/2019 She has been seen earlier today by her physician assistant professor, Contreras Parker. She complains of left upper extremity discomfort. On examination, her appearance, she is comfortable. She is sleeping. I was able wake her up. Up waking her up, she was able to call down to dietary to request her meal. Then I briefly examined her. She has got swelling in the left upper extremity. There is no active drainage. The skin is soft. She seems to be sensitive. I can passively move the fingers. She complains of pain but they seem to be sensate on examination today. MRI: I also reviewed the MRI reflecting some myositis and/or edema. IMPRESSION: This does not seem to be consistent with compartment syndrome. She has a cellulitis, myositis secondary to issues as mentioned previously. I recommend continued IV antibiotics, elevation on multiple pillows, K-pad hearing with a damp towel, reevaluation for efficacy of medication/vancomycin as well as blood cultures when they are available. I would not recommend open debridement at this time.
[2019-10-22] MEDS: OLANZapine 10 MG TAB PO SCH (20:02)
[2019-10-22] MEDS: BENZTROPINE 1 MG TAB PO SCH (20:03)
[2019-10-22] MEDS: traZODone 50 MG TAB PO SCH (20:04)
[2019-10-22] MEDS: ENOXAPARIN 40 MG/0.4 ML SYRINGE (J1650) SC SCH (20:05)
--- NOTE | 2019-10-22 20:29 | PHACANCOPD ---
PHARMACY VANCOMYCIN DOSING Pt Demographics Demographics Patient Age:29 , Weight:49.400 , Gender: female Adjusted Body Weight Date: 10/21/19, Adjusted Body Weight: Kg Events Past 24 Hours Events Past 24 Hours: NO: Dialysis, Diuretic Therapy, Change in CrCl, Fever, Elevation in WBC, Pending Diagnostics, Pending Procedures, Other Vancomycin Vancomycin indication: CELLULITIS Vancomycin Target Ranges: 15-20 mcg/ml Vancomycin Load Y/N: Yes Load Dose Date Time Vancomycin Load Dose: 1000mg Date: 10-21 Time: 1900 Vancomycin Dose Date: 10/21/19. Current Vancomycin Dose: [1000mg q8h] Intermittent Dosing?: No Labs Labs Item Value Date Time White Blood Count 10.3 10^3/uL H 10/21/19 1642 White Blood Count 11.9 10^3/uL H 10/22/19 0532 Creatinine 0.85 MG/DL 10/21/19 1803 Creatinine 0.94 MG/DL 10/22/19 0532 Vancomycin Level Trough 10.1 UG/ML 10/22/19 1827 Micro Microbiology 10/21/19 Blood Culture - Preliminary, Resulted No growth after 24 hours . All specim... 10/21/19 Blood Culture - Preliminary, Resulted No growth after 24 hours . All specim... Creatinine Clearance Date:10/22/19. Creatinine Clearance: [74ML/MIN]. Date:10/21/19. Creatinine Clearance: [~80]. Pending Labs Trough 10-23 @1900 Assessment and Plan Maintaining Current Dose?: No Reason for dose change: Trough too low Pharmacist Note Pharmacist Note Date: 10/22/19. Pharmacist note: PT trough came back at 10.1mcg/ml tonight prior to the 4th. Dosing will be changed to 1g IV every 8 hours starting 10/23/19 @04:00. A trough is scheduled for 10/23/19 @19:00. We will continue to monitor and adjust the dose as needed. Date: 10/21/19. Pharmacist note:Will monitor and make adjustments as needed. [facility] Oct 22, 2019 20:29
[2019-10-23] MEDS: PIPERACILLIN/TAZOBACTAM SOD 3.375 GM in D5W MINI-BAG PLUS 50 ML IV SCH ×4 (01:58→21:21)
[2019-10-23] MEDS: VANCOMYCIN HCL 1,000 MG, VIAL MATE ADAPTER 1 EACH in D5W 250 ML IV SCH ×3 (03:35→19:54)
[2019-10-23] MEDS: SODIUM CHLORIDE 0.9% INJ 10 ML SYR IV SCH ×3 (05:13→22:00)
[2019-10-23] MEDS: LR 1,000 ML IV SCH (05:14)
[2019-10-23 05:41] LABS: HEMATOCRIT 30.4 % (36.0-47.0); MEAN CORPUSCULAR HEMOGLOBIN 31.7 pg (27.0-33.0); MEAN CORPUSCULAR HGB CONC 30.6 g/dl (32.0-36.5); MEAN CORPUSCULAR VOLUME 103.8 fl (80.0-96.0); PLATELET COUNT, AUTOMATED 362 10^3/uL (150-450); RED BLOOD COUNT 2.93 10^6/uL (4.00-5.40); WHITE BLOOD COUNT 10.6 10^3/uL (4.0-10.0)
[2019-10-23 05:54] LABS: HEMOGLOBIN 9.3 g/dl (12.0-15.5)
[2019-10-23 06:00] VITALS: BP 114/52
[2019-10-23 06:04] LABS: BLOOD UREA NITROGEN 5 MG/DL (7-18); CALCIUM LEVEL 7.7 MG/DL (8.5-10.1); CARBON DIOXIDE LEVEL 28 MEQ/L (21-32); CHLORIDE LEVEL 111 MEQ/L (98-107); CREATININE FOR GFR 0.94 MG/DL (0.55-1.30); GLOMERULAR FILTRATION RATE > 60.0 (>60); GLUCOSE, FASTING 93 MG/DL (70-100); MAGNESIUM LEVEL 1.9 MG/DL (1.8-2.4); PHOSPHORUS LEVEL 3.4 MG/DL (2.5-4.9); POTASSIUM SERUM 3.8 MEQ/L (3.5-5.1); SODIUM LEVEL 144 MEQ/L (136-145)
[2019-10-23] MEDS: buPROPion **XL** TABLET 150MG (WELLBUTRIN XL) PO SCH (09:23)
[2019-10-23] MEDS: GABAPENTIN 400 MG CAP PO SCH ×3 (09:23→21:21)
[2019-10-23] MEDS: LORATADINE 10 MG TAB PO SCH (09:23)
[2019-10-23 14:00] VITALS: BP 120/61
--- NOTE | 2019-10-23 19:06 | IPNPDOC ---
Date Seen The patient was seen on 10/23/19. Progress Note HISTORY OF PRESENT ILLNESS: 29-year-old female with past medical history of IV drug use, anemia, presents from home with arm pain and swelling after attempting IV drug use a few weeks ago. She reports it was her first time doing IV drugs, 3 weeks ago, she missed her veins and injected into her skin, multiple locations in both arms. She reports worsening left arm pain, swelling and tightness with associated numbness and tingling in the fingertips starting a few days ago along with chills. She denies any fever, denies history of bacteremia or endocarditis. She denies any short of breath, chest pain, nausea, vomiting, abdominal pain or diarrhea at this time. 10/22/2019 Patient continues to have significant left forearm pain, swelling, along with tingling of fingertips. She has a complex at this time, tolerating diet. 10/23/2019 Pain and swelling slightly improved from yesterday, tolerating diet, no other complaints. 10 point review of system is negative except for above PHYSICAL EXAMINATION: VITAL SIGNS: Please see below. GENERAL: No distress HEENT: Normocephalic, atraumatic, moist mucous membranes NECK: Supple CARDIOVASCULAR EXAMINATION: Tachycardic RESPIRATORY EXAMINATION: Clear to auscultation, no wheezing ABDOMINAL EXAMINATION: Soft, nontender, nondistended, positive bowel sounds EXTREMITIES: Left forearm with diffuse swelling, erythema and tenderness to palpation with multiple track noble, no drainage, pulses palpable SKIN: As listed above NEUROLOGICAL EXAMINATION: Alert and oriented 3, no focal deficits PSYCHIATRIC EXAMINATION: Calm and cooperative LABORATORY DATA: See below. IMAGING: Left arm ultrasound with diffuse edema, no abscess MICROBIOLOGY: Please see below. ASSESSMENT: 29-year-old female with past medical history of polysubstance abuse, IV drug use, anemia, presents with diffuse left upper extremity cellulitis after IV drug use a few weeks ago. PLAN: 1. Cellulitis. History of IV drug use, diffuse left upper extremity edema with significant tenderness to palpation, MRI with significant edema, myositis, tenosynovitis, orthopedic surgery consult appreciated, no need for surgical intervention at this time, continue vancomycin and Zosyn, keep arm elevated with warm compresses, cultures negative to date. 2. Anxiety/depression. Continue home meds DVT per flexes: Lovenox GI prophylaxis: Not needed VS, I&O, 24H, Fishbone Vital Signs/I&O Vital Signs Date Time Temp Pulse Resp B/P (MAP) Pulse Ox O2 Delivery O2 Flow Rate FiO2 10/23/19 14:00 97.5 99 16 120/61 (80) 99 10/23/19 06:00 Room Air I&O- Last 24 Hours up to 6 AM 10/23/19 06:00 Intake Total 2805 ml Output Total 900 ml Balance 1905 ml Laboratory Data 24H LABS Laboratory Tests 2 10/23/19 05:23: Nucleated Red Blood Cells % (auto) 0.0, Anion Gap 5L, Glomerular Filtration Rate > 60.0, Calcium Level 7.7L, Phosphorus Level 3.4, Magnesium Level 1.9 10/23/19 18:53: CBC/BMP Laboratory Tests 10/23/19 05:23 Microbiology Microbiology 10/21/19 Blood Culture - Preliminary, Resulted No Growth after 48 hours. All Specime... 10/21/19 Blood Culture - Preliminary, Resulted No Growth after 48 hours. All Specime... ALYSSA GARCIA MD Oct 23, 2019 19:06
[2019-10-23 19:44] LABS: VANCOMYCIN LEVEL TROUGH 12.5 UG/ML (10.0-20.0)
[2019-10-23] MEDS: ENOXAPARIN 40 MG/0.4 ML SYRINGE (J1650) SC SCH (21:21)
[2019-10-23] MEDS: BENZTROPINE 1 MG TAB PO SCH (21:21)
[2019-10-23] MEDS: traZODone 50 MG TAB PO SCH (21:21)
[2019-10-23] MEDS: OLANZapine 10 MG TAB PO SCH (21:27)
[2019-10-23 22:00] VITALS: BP 98/52
[2019-10-24] MEDS: PIPERACILLIN/TAZOBACTAM SOD 3.375 GM in D5W MINI-BAG PLUS 50 ML IV SCH ×4 (03:13→21:25)
[2019-10-24] MEDS: VANCOMYCIN HCL 1,000 MG, VIAL MATE ADAPTER 1 EACH in D5W 250 ML IV SCH ×3 (04:49→20:12)
[2019-10-24 06:00] VITALS: BP 100/52
[2019-10-24] MEDS: SODIUM CHLORIDE 0.9% INJ 10 ML SYR IV SCH ×3 (06:05→21:25)
[2019-10-24] MEDS: SODIUM CHLORIDE 0.9% INJ 10 ML SYR IV PRN ×2 (06:05→11:10)
[2019-10-24 06:42] LABS: HEMATOCRIT 29.9 % (36.0-47.0); HEMOGLOBIN 9.5 g/dl (12.0-15.5); MEAN CORPUSCULAR HEMOGLOBIN 32.4 pg (27.0-33.0); MEAN CORPUSCULAR HGB CONC 31.8 g/dl (32.0-36.5); PLATELET COUNT, AUTOMATED 371 10^3/uL (150-450); RED BLOOD COUNT 2.93 10^6/uL (4.00-5.40); WHITE BLOOD COUNT 10.4 10^3/uL (4.0-10.0)
--- NOTE | 2019-10-24 06:53 | IPN ---
DATE: 10/23/2019 Seen and examined today. She says her hand is feeling a little bit better. Continues to have forearm pain. On exam she is alert. Verified with nursing she has been sleeping better over the course of today and has not required much pain medicine, but p.r.n. today. On examination today she has active as well as passive motion of the fingers and there is really no tenderness whatsoever with finger flexion and extension passively today in the hand. No significant edema of the hand. Still has some volar forearm edema. IMPRESSION: Slow interval improvement in clinical appearance of cellulitis.
[2019-10-24 07:02] LABS: BLOOD UREA NITROGEN 5 MG/DL (7-18); CALCIUM LEVEL 8.3 MG/DL (8.5-10.1); CARBON DIOXIDE LEVEL 29 MEQ/L (21-32); CHLORIDE LEVEL 109 MEQ/L (98-107); CREATININE FOR GFR 0.82 MG/DL (0.55-1.30); GLOMERULAR FILTRATION RATE > 60.0 (>60); GLUCOSE, FASTING 84 MG/DL (70-100); POTASSIUM SERUM 3.8 MEQ/L (3.5-5.1); SODIUM LEVEL 143 MEQ/L (136-145)
[2019-10-24] MEDS: buPROPion **XL** TABLET 150MG (WELLBUTRIN XL) PO SCH (09:03)
[2019-10-24] MEDS: LORATADINE 10 MG TAB PO SCH (09:03)
[2019-10-24] MEDS: GABAPENTIN 400 MG CAP PO SCH ×3 (09:03→21:24)
[2019-10-24 14:00] VITALS: BP 98/54
[2019-10-24] MEDS: ACETAMINOPHEN TAB 650MG DOSE (2X325MG) PO PRN (15:12)
[2019-10-24] MEDS ORDERED: NS 500 ML IV ONE (16:00)
--- NOTE | 2019-10-24 17:51 | IPNPDOC ---
Date Seen The patient was seen on 10/24/19. Progress Note HISTORY OF PRESENT ILLNESS: 29-year-old female with past medical history of IV drug use, anemia, presents from home with arm pain and swelling after attempting IV drug use a few weeks ago. She reports it was her first time doing IV drugs, 3 weeks ago, she missed her veins and injected into her skin, multiple locations in both arms. She reports worsening left arm pain, swelling and tightness with associated numbness and tingling in the fingertips starting a few days ago along with chills. She denies any fever, denies history of bacteremia or endocarditis. She denies any short of breath, chest pain, nausea, vomiting, abdominal pain or diarrhea at this time. 10/22/2019 Patient continues to have significant left forearm pain, swelling, along with tingling of fingertips. She has a complex at this time, tolerating diet. 10/23/2019 Pain and swelling slightly improved from yesterday, tolerating diet, no other complaints. 10/24/2019 Left with significant improvement in pain and swelling, continues to have tingling in the fingertips, tolerating diet, no other complains. 10 point review of system is negative except for above PHYSICAL EXAMINATION: VITAL SIGNS: Please see below. 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 IMAGING: Left arm ultrasound with diffuse edema, no abscess MICROBIOLOGY: Please see below. ASSESSMENT: 29-year-old female with past medical history of polysubstance abuse, IV drug use, anemia, presents with diffuse left upper extremity cellulitis after IV drug use a few weeks ago. PLAN: 1. Cellulitis. History of IV drug use, MRI with significant edema, myositis, tenosynovitis, orthopedic surgery consult appreciated, no need for surgical intervention at this time, continue vancomycin and Zosyn, keep arm elevated with warm compress es, cultures negative to date. 2. Anxiety/depression. Continue home meds DVT per flexes: Lovenox GI prophylaxis: Not needed VS, I&O, 24H, Fishbone Vital Signs/I&O Vital Signs Date Time Temp Pulse Resp B/P (MAP) Pulse Ox O2 Delivery O2 Flow Rate FiO2 10/24/19 14:00 98.2 96 15 98/54 (69) 98 Room Air I&O- Last 24 Hours up to 6 AM 10/24/19 06:00 Intake Total 1260 ml Output Total 1900 ml Balance -640 ml Laboratory Data 24H LABS Laboratory Tests 2 10/23/19 18:53: Vancomycin Level Trough 13.5 10/23/19 19:05: Vancomycin Level Trough 12.5 10/24/19 06:25: Nucleated Red Blood Cells % (auto) 0.0, Anion Gap 5L, Glomerular Filtration Rate > 60.0, Calcium Level 8.3L 10/24/19 11:06: Vancomycin Level Trough 18.8 CBC/BMP Laboratory Tests 10/24/19 06:25 Microbiology Microbiology 10/21/19 Blood Culture - Preliminary, Resulted No Growth after 48 hours. All Specime... 10/21/19 Blood Culture - Preliminary, Resulted No Growth after 72 hours. All specime... ALYSSA GARCIA MD Oct 24, 2019 17:51
[2019-10-24] MEDS: ENOXAPARIN 40 MG/0.4 ML SYRINGE (J1650) SC SCH (21:24)
[2019-10-24] MEDS: OLANZapine 10 MG TAB PO SCH (21:24)
[2019-10-24] MEDS: traZODone 50 MG TAB PO SCH (21:24)
[2019-10-24] MEDS: BENZTROPINE 1 MG TAB PO SCH (21:24)
[2019-10-24 22:00] VITALS: BP 92/55
[2019-10-25] MEDS: PIPERACILLIN/TAZOBACTAM SOD 3.375 GM in D5W MINI-BAG PLUS 50 ML IV SCH ×4 (03:07→21:05)
[2019-10-25] MEDS: VANCOMYCIN HCL 1,000 MG, VIAL MATE ADAPTER 1 EACH in D5W 250 ML IV SCH ×3 (04:10→19:49)
[2019-10-25] MEDS: SODIUM CHLORIDE 0.9% INJ 10 ML SYR IV SCH ×3 (05:25→21:05)
[2019-10-25 05:45] LABS: HEMATOCRIT 30.4 % (36.0-47.0); HEMOGLOBIN 9.3 g/dl (12.0-15.5); MEAN CORPUSCULAR HEMOGLOBIN 32.2 pg (27.0-33.0); MEAN CORPUSCULAR HGB CONC 30.6 g/dl (32.0-36.5); MEAN CORPUSCULAR VOLUME 105.2 fl (80.0-96.0); PLATELET COUNT, AUTOMATED 359 10^3/uL (150-450); RED BLOOD COUNT 2.89 10^6/uL (4.00-5.40); WHITE BLOOD COUNT 7.4 10^3/uL (4.0-10.0)
[2019-10-25 06:00] VITALS: BP 98/56
[2019-10-25 06:08] LABS: BLOOD UREA NITROGEN 7 MG/DL (7-18); CALCIUM LEVEL 7.5 MG/DL (8.5-10.1); CARBON DIOXIDE LEVEL 29 MEQ/L (21-32); CHLORIDE LEVEL 109 MEQ/L (98-107); CREATININE FOR GFR 0.96 MG/DL (0.55-1.30); GLOMERULAR FILTRATION RATE > 60.0 (>60); GLUCOSE, FASTING 91 MG/DL (70-100); MAGNESIUM LEVEL 1.9 MG/DL (1.8-2.4); PHOSPHORUS LEVEL 3.6 MG/DL (2.5-4.9); POTASSIUM SERUM 3.7 MEQ/L (3.5-5.1); SODIUM LEVEL 143 MEQ/L (136-145)
[2019-10-25] MEDS ORDERED: MIRALAX *UNIT DOSE* 17GM PACKET PO PRN (09:00)
[2019-10-25] MEDS ORDERED: MIRALAX *UNIT DOSE* 17GM PACKET PO ONE (09:30)
[2019-10-25] MEDS ORDERED: POTASSIUM CHLORIDE 10 MEQ SR TABLET PO ONE (10:00)
[2019-10-25] MEDS: LORATADINE 10 MG TAB PO SCH (10:15)
[2019-10-25] MEDS: buPROPion **XL** TABLET 150MG (WELLBUTRIN XL) PO SCH (10:15)
[2019-10-25] MEDS: GABAPENTIN 400 MG CAP PO SCH ×3 (10:15→20:16)
--- NOTE | 2019-10-25 10:45 | IPNPDOC ---
Date Seen The patient was seen on 10/25/19. Progress Note HISTORY OF PRESENT ILLNESS: 29-year-old female with past medical history of IV drug use, anemia, presents from home with arm pain and swelling after attempting IV drug use a few weeks ago. She reports it was her first time doing IV drugs, 3 weeks ago, she missed her veins and injected into her skin, multiple locations in both arms. She reports worsening left arm pain, swelling and tightness with associated numbness and tingling in the fingertips starting a few days ago along with chills. She denies any fever, denies history of bacteremia or endocarditis. She denies any short of breath, chest pain, nausea, vomiting, abdominal pain or diarrhea at this time. 10/22/2019 Patient continues to have significant left forearm pain, swelling, along with tingling of fingertips. She has a complex at this time, tolerating diet. 10/23/2019 Pain and swelling slightly improved from yesterday, tolerating diet, no other complaints. 10/24/2019 Left with significant improvement in pain and swelling, continues to have tingling in the fingertips, tolerating diet, no other complains. 10/25/2019 Left arm swelling and pain continues to improve except for one localized area that is tender and swollen. She has no complaints, tolerating diet. 10 point review of system is negative except for above PHYSICAL EXAMINATION: VITAL SIGNS: Please see below. GENERAL: No distress HEENT: Normocephalic, atraumatic, moist mucous membranes NECK: Supple CARDIOVASCULAR EXAMINATION: S1, S2, no murmurs RESPIRATORY EXAMINATION: Clear to auscultation, no wheezing ABDOMINAL EXAMINATION: Soft, nontender, nondistended, positive bowel sounds EXTREMITIES: Left forearm with improvement in swelling and pain, possible fluid collection, pulses palpable SKIN: As listed above NEUROLOGICAL EXAMINATION: Alert and oriented 3, no focal deficits PSYCHIATRIC EXAMINATION: Calm and cooperative LABORATORY DATA: See below. IMAGING: Left arm ultrasound with diffuse edema, no abscess MICROBIOLOGY: Please see below. ASSESSMENT: 29-year-old female with past medical history of polysubstance abuse, IV drug use, anemia, presents with diffuse left upper extremity cellulitis after IV drug use a few weeks ago. PLAN: 1. Cellulitis. History of IV drug use, MRI with significant edema, myositis, tenosynovitis, orthopedic surgery consult appreciated, no need for surgical intervention at this time, continue vancomycin and Zosyn, physical exam with possible fluid collection in the distal forearm, ultrasound ordered, may require I&D. 2. Anxiety/depression. Continue home meds DVT per flexes: Lovenox GI prophylaxis: Not needed VS, I&O, 24H, Fishbone Vital Signs/I&O Vital Signs Date Time Temp Pulse Resp B/P (MAP) Pulse Ox O2 Delivery O2 Flow Rate FiO2 10/25/19 06:00 98.9 86 16 98/56 (70) 98 Room Air I&O- Last 24 Hours up to 6 AM 10/25/19 06:00 Intake Total 4005 ml Output Total 3000 ml Balance 1005 ml Laboratory Data 24H LABS Laboratory Tests 2 10/24/19 11:06: Vancomycin Level Trough 18.8 10/25/19 05:34: Nucleated Red Blood Cells % (auto) 0.0, Anion Gap 5L, Glomerular Filtration Rate > 60.0, Calcium Level 7.5L, Phosphorus Level 3.6, Magnesium Level 1.9 10/25/19 10:26: CBC/BMP Laboratory Tests 10/25/19 05:34 Microbiology Microbiology 10/21/19 Blood Culture - Preliminary, Resulted No Growth after 72 hours. All specime... 10/21/19 Blood Culture - Preliminary, Resulted No Growth after 72 hours. All specime... ALYSSA GARCIA MD Oct 25, 2019 10:45
--- NOTE | 2019-10-25 13:32 | REP ---
SOFT-TISSUE ULTRASOUND LEFT FOREARM: 10/25/2019. COMPARISON: MRI and soft tissue ultrasound, 10/21/2019. CLINICAL HISTORY: Concern for abscess. Previously extensive cellulitis, edema, and fluid along fascial planes. FINDINGS: The pattern of diffuse subcutaneous edema is seen, and there is a complex mixed echogenicity focus in the left forearm in the area of swelling. It measures 3.8 x 1.2 x 2.7 cm. There is abundant color flow in and nearby it. Some areas of the hypoechogenicity are noted, largest about 7.8 mm in size. This could be a small abscess developing in a much larger phlegmon. Most of the area in question is still solid and shows color flow within it. IMPRESSION: 1. An extensive area of subcutaneous edema and cellulitis in the left forearm with zone of complex hypoechoic tissue, 3.8 x 1.2 x 2.7 cm. It shows color flow and Doppler flow within. There is a more hypoechoic zone within it measuring 7.8 mm that could be the earliest portion of a developing abscess, but most of this is still phlegmon and not drainable. Electronically Signed by Deni Mario MD 10/25/2019 05:14 P
[2019-10-25 14:00] VITALS: BP 98/54
[2019-10-25] MEDS: BENZTROPINE 1 MG TAB PO SCH (20:16)
[2019-10-25] MEDS: OLANZapine 10 MG TAB PO SCH (20:16)
[2019-10-25] MEDS: traZODone 50 MG TAB PO SCH (20:16)
[2019-10-25] MEDS: ENOXAPARIN 40 MG/0.4 ML SYRINGE (J1650) SC SCH (20:17)
[2019-10-25 22:00] VITALS: BP 99/55
[2019-10-26] MEDS: PIPERACILLIN/TAZOBACTAM SOD 3.375 GM in D5W MINI-BAG PLUS 50 ML IV SCH ×4 (02:55→22:18)
[2019-10-26] MEDS: VANCOMYCIN HCL 1,000 MG, VIAL MATE ADAPTER 1 EACH in D5W 250 ML IV SCH ×3 (04:05→20:25)
[2019-10-26] MEDS: SODIUM CHLORIDE 0.9% INJ 10 ML SYR IV SCH (05:42)
[2019-10-26 05:48] LABS: HEMATOCRIT 30.1 % (36.0-47.0); HEMOGLOBIN 9.4 g/dl (12.0-15.5); MEAN CORPUSCULAR HEMOGLOBIN 32.1 pg (27.0-33.0); MEAN CORPUSCULAR HGB CONC 31.2 g/dl (32.0-36.5); MEAN CORPUSCULAR VOLUME 102.7 fl (80.0-96.0); PLATELET COUNT, AUTOMATED 387 10^3/uL (150-450); RED BLOOD COUNT 2.93 10^6/uL (4.00-5.40); WHITE BLOOD COUNT 5.8 10^3/uL (4.0-10.0)
[2019-10-26 06:00] VITALS: BP 103/55
[2019-10-26 06:05] LABS: BLOOD UREA NITROGEN 7 MG/DL (7-18); CALCIUM LEVEL 8.1 MG/DL (8.5-10.1); CARBON DIOXIDE LEVEL 31 MEQ/L (21-32); CHLORIDE LEVEL 106 MEQ/L (98-107); CREATININE FOR GFR 0.89 MG/DL (0.55-1.30); GLOMERULAR FILTRATION RATE > 60.0 (>60); GLUCOSE, FASTING 73 MG/DL (70-100); SODIUM LEVEL 141 MEQ/L (136-145)
[2019-10-26] MEDS: buPROPion **XL** TABLET 150MG (WELLBUTRIN XL) PO SCH (08:30)
[2019-10-26] MEDS: LORATADINE 10 MG TAB PO SCH (08:31)
[2019-10-26] MEDS: GABAPENTIN 400 MG CAP PO SCH ×3 (08:31→22:18)
[2019-10-26] MEDS ORDERED: MORPHINE 2 MG/ML 1ML VIAL (J2270) IV PRN (10:15)
[2019-10-26 14:00] VITALS: BP 99/55
--- NOTE | 2019-10-26 14:39 | PHACANCOPD ---
PHARMACY VANCOMYCIN DOSING Pt Demographics Demographics Patient Age:29 , Weight:49.400 , Gender: female Adjusted Body Weight Date: 10/21/19, Adjusted Body Weight: Kg Vancomycin Vancomycin indication: CELLULITIS Vancomycin Target Ranges: 15-20 mcg/ml Vancomycin Load Y/N: Yes Load Dose Date Time Vancomycin Load Dose: 1000mg Date: 10-21 Time: 1900 Vancomycin Dose Date: 10/21/19. Current Vancomycin Dose: [1000mg q8h] Intermittent Dosing?: No Labs Micro Microbiology 10/21/19 Blood Culture - Preliminary, Resulted No Growth after 72 hours. All specime... 10/21/19 Blood Culture - Preliminary, Resulted No Growth after 72 hours. All specime... Creatinine Clearance Date:10/22/19. Creatinine Clearance: [74ML/MIN]. Date:10/21/19. Creatinine Clearance: [~80]. Pending Labs Trough 10-23 @1900 Assessment and Plan Maintaining Current Dose?: Yes Reason for dose change: No Dose Change Pharmacist Note Pharmacist Note Date: 10/26/19. Pharmacist note: Pt trough resulted at 17.4. Dosing will be continued at 1 gm IV q8h. Pharmacy will continue to monitor and make adjustments as needed. Date: 10/22/19. Pharmacist note: PT trough came back at 10.1mcg/ml tonight prior to the 4th. Dosing will be changed to 1g IV every 8 hours starting 10/23/19 @04:00. A trough is scheduled for 10/23/19 @19:00. We will continue to monitor and adjust the dose as needed. Date: 10/21/19. Pharmacist note:Will monitor and make adjustments as needed. [facility] Oct 26, 2019 14:39
--- NOTE | 2019-10-26 15:39 | IPNPDOC ---
Date Seen The patient was seen on 10/26/19. Progress Note HISTORY OF PRESENT ILLNESS: 29-year-old female with past medical history of IV drug use, anemia, presents from home with arm pain and swelling after attempting IV drug use a few weeks ago. She reports it was her first time doing IV drugs, 3 weeks ago, she missed her veins and injected into her skin, multiple locations in both arms. She reports worsening left arm pain, swelling and tightness with associated numbness and tingling in the fingertips starting a few days ago along with chills. She denies any fever, denies history of bacteremia or endocarditis. She denies any short of breath, chest pain, nausea, vomiting, abdominal pain or diarrhea at this time. 10/22/2019 Patient continues to have significant left forearm pain, swelling, along with tingling of fingertips. She has a complex at this time, tolerating diet. 10/23/2019 Pain and swelling slightly improved from yesterday, tolerating diet, no other complaints. 10/24/2019 Left with significant improvement in pain and swelling, continues to have tingling in the fingertips, tolerating diet, no other complains. 10/25/2019 Left arm swelling and pain continues to improve except for one localized area that is tender and swollen. She has no complaints, tolerating diet. 10/26/2019 Patient continues to have improvement in left arm swelling and pain, numbness and tingling persists, no complaints. 10 point review of system is negative except for above PHYSICAL EXAMINATION: VITAL SIGNS: Please see below. GENERAL: No distress HEENT: Normocephalic, atraumatic, moist mucous membranes NECK: Supple CARDIOVASCULAR EXAMINATION: S1, S2, no murmurs RESPIRATORY EXAMINATION: Clear to auscultation, no wheezing ABDOMINAL EXAMINATION: Soft, nontender, nondistended, positive bowel sounds EXTREMITIES: Left forearm with significant improvement in swelling and pain, pulses palpable SKIN: As listed above NEUROLOGICAL EXAMINATION: Alert and oriented 3, no focal deficits PSYCHIATRIC EXAMINATION: Calm and cooperative LABORATORY DATA: See below. IMAGING: Left arm ultrasound with diffuse edema, no abscess MICROBIOLOGY: Please see below. ASSESSMENT: 29-year-old female with past medical history of polysubstance abuse, IV drug use, anemia, presents with diffuse left upper extremity cellulitis after IV drug use a few weeks ago. PLAN: 1. Cellulitis. History of IV drug use, MRI with significant edema, myositis, tenosynovitis, orthopedic surgery consult appreciated, no need for surgical intervention at this time, continue vancomycin and Zosyn, repeat ultrasound of the arm, negative for drainable fluid collection. Will consider switching to oral antibiotics tomorrow with possible discharge. 2. Anxiety/depression. Continue home meds DVT per flexes: Lovenox GI prophylaxis: Not needed VS, I&O, 24H, Fishbone Vital Signs/I&O Vital Signs Date Time Temp Pulse Resp B/P (MAP) Pulse Ox O2 Delivery O2 Flow Rate FiO2 10/26/19 14:00 98.9 91 16 99/55 (70) 97 Room Air I&O- Last 24 Hours up to 6 AM 10/26/19 06:00 Intake Total 2430 ml Output Total 3000 ml Balance -570 ml Laboratory Data 24H LABS Laboratory Tests 2 10/26/19 05:36: Nucleated Red Blood Cells % (auto) 0.0, Anion Gap 4L, Glomerular Filtration Rate > 60.0, Calcium Level 8.1L 10/26/19 11:26: Vancomycin Level Trough 17.4 CBC/BMP Laboratory Tests 10/26/19 05:36 Microbiology Microbiology 10/21/19 Blood Culture - Preliminary, Resulted No Growth after 72 hours. All specime... 10/21/19 Blood Culture - Preliminary, Resulted No Growth after 72 hours. All specime... ALYSSA GARCIA MD Oct 26, 2019 15:39
[2019-10-26 22:00] VITALS: BP 99/58
[2019-10-26] MEDS: traZODone 50 MG TAB PO SCH (22:17)
[2019-10-26] MEDS: OLANZapine 10 MG TAB PO SCH (22:18)
[2019-10-26] MEDS: ENOXAPARIN 40 MG/0.4 ML SYRINGE (J1650) SC SCH (22:18)
[2019-10-26] MEDS: BENZTROPINE 1 MG TAB PO SCH (22:19)
[2019-10-27] MEDS: PIPERACILLIN/TAZOBACTAM SOD 3.375 GM in D5W MINI-BAG PLUS 50 ML IV SCH ×2 (02:03→08:33)
[2019-10-27] MEDS: VANCOMYCIN HCL 1,000 MG, VIAL MATE ADAPTER 1 EACH in D5W 250 ML IV SCH (03:39)
[2019-10-27 06:00] VITALS: BP 94/49
[2019-10-27 06:25] LABS: HEMOGLOBIN 9.8 g/dl (12.0-15.5); MEAN CORPUSCULAR HEMOGLOBIN 32.5 pg (27.0-33.0); MEAN CORPUSCULAR HGB CONC 30.6 g/dl (32.0-36.5); PLATELET COUNT, AUTOMATED 359 10^3/uL (150-450); RED BLOOD COUNT 3.02 10^6/uL (4.00-5.40); WHITE BLOOD COUNT 5.6 10^3/uL (4.0-10.0)
[2019-10-27 06:47] LABS: BLOOD UREA NITROGEN 10 MG/DL (7-18); CARBON DIOXIDE LEVEL 26 MEQ/L (21-32); CHLORIDE LEVEL 108 MEQ/L (98-107); CREATININE FOR GFR 0.84 MG/DL (0.55-1.30); GLOMERULAR FILTRATION RATE > 60.0 (>60); GLUCOSE, FASTING 75 MG/DL (70-100); POTASSIUM SERUM 4.2 MEQ/L (3.5-5.1); SODIUM LEVEL 139 MEQ/L (136-145)
[2019-10-27] MEDS: LORATADINE 10 MG TAB PO SCH (08:32)
[2019-10-27] MEDS: GABAPENTIN 400 MG CAP PO SCH (08:33)
[2019-10-27] MEDS: buPROPion **XL** TABLET 150MG (WELLBUTRIN XL) PO SCH (08:33)
[2019-10-27] MEDS: ACETAMINOPHEN TAB 650MG DOSE (2X325MG) PO PRN (08:42)
[2019-10-27 09:15] VITALS: BP 92/50
[2019-10-27] MEDS ORDERED: CLIN150C14 PO (12:01)
[2019-10-27] MEDS ORDERED: CLINDAMYCIN 150 MG CAP PO SCH (13:00)
[2019-10-27 13:50] VITALS: BP 94/40
--- NOTE | 2019-10-27 15:35 | DS.PDOC ---
Discharge Summary General Date of Admission Oct 21, 2019 at 19:34 Date of Discharge 10/27/2019 Attending Physician: ALYSSA GARCIA MD Discharge Summary PROCEDURES PERFORMED DURING STAY: None. ADMITTING DIAGNOSES: 1. Cellulitis. DISCHARGE DIAGNOSES: 1. Cellulitis, myositis, tenosynovitis. COMPLICATIONS/CHIEF COMPLAINT: Cellulitis. HISTORY OF PRESENT ILLNESS: 29-year-old female with past medical history of IV drug abuse, was admitted for cellulitis secondary to IV drugs. Patient was found to have significant cellulitis, myositis, tenosynovitis and edema of the left forearm. She underwent MRI and subsequent left upper extremity ultrasound. She was also evaluated by orthopedic surgery who did not recommend any surgical intervention, she continued to improve with IV antibiotics. Her symptoms and arm are significant better on physical examination, patient is stable for discharge on oral antibiotics and outpatient follow-up. Patient does have small collection in her arm, ultrasound is negative for abscess, likely phlegmon that will drain on its own. Patient is advised to complete her antibiotics with clindamycin and follow with her primary care physician within a week to confirm improvement and resolution of cellulitis. Patient is clinically and hemodynamically stable for discharge. HOSPITAL COURSE: As above. DISCHARGE MEDICATIONS: Please see below. ALLERGIES: Please see below. PHYSICAL EXAMINATION: VITAL SIGNS: Please see below. GENERAL: No distress HEENT: Normocephalic, atraumatic, moist mucous membranes NECK: Supple CARDIOVASCULAR EXAMINATION: S1, S2, no murmurs RESPIRATORY EXAMINATION: Clear to auscultation, no wheezing ABDOMINAL EXAMINATION: Soft, nontender, nondistended, positive bowel sounds EXTREMITIES: Left forearm with significant improvement in swelling and pain, pulses palpable SKIN: As listed above NEUROLOGICAL EXAMINATION: Alert and oriented 3, no focal deficits PSYCHIATRIC EXAMINATION: Calm and cooperative LABORATORY DATA: Please see below. IMAGING: MRI and ultrasound findings as above PROGNOSIS: Good ACTIVITY: As tolerated. DIET: Regular DISCHARGE PLAN: Follow with PCP in 1-2 weeks DISPOSITION: 01 Home, Self-Care. DISCHARGE INSTRUCTIONS: 1. As above. DISCHARGE CONDITION: Stable. TIME SPENT ON DISCHARGE: Greater than 26 minutes. Vital Signs/I&Os Vital Signs Date Time Temp Pulse Resp B/P (MAP) Pulse Ox O2 Delivery O2 Flow Rate FiO2 10/27/19 13:50 98.0 88 20 94/40 (58) 100 Room Air I&O- Last 24 Hours up to 6 AM 10/27/19 06:00 Intake Total 2930 ml Output Total 3000 ml Balance -70 ml Laboratory Data Labs 24H Laboratory Tests 2 10/27/19 05:44: Nucleated Red Blood Cells % (auto) 0.0, Anion Gap 5L, Glomerular Filtration Rate > 60.0, Calcium Level 8.0L CBC/BMP Laboratory Tests 10/27/19 05:44 Microbiology Microbiology 10/21/19 Blood Culture - Final, Complete NO GROWTH AFTER 5 DAYS 10/21/19 Blood Culture - Final, Complete NO GROWTH AFTER 5 DAYS Discharge Medications Scheduled Benztropine Mesylate (Benztropine Mesylate) 1 Mg Tablet, 1 MG PO QHS, (Reported) Bupropion HCl (Wellbutrin Xl) 300 Mg Tab.er.24h, 300 MG PO DAILY, (Reported) Clindamycin Hcl (Clindamycin HCl) 150 Mg Capsule, 300 MG PO QID Gabapentin (Gabapentin) 800 Mg Tablet, 800 MG PO TID, (Reported) Loratadine (Loratadine) 10 Mg Tablet, 10 MG PO DAILY, (Reported) Mirtazapine (Mirtazapine) 45 Mg Tab.rapdis, 45 MG PO QHS, (Reported) Olanzapine (Olanzapine) 10 Mg Tablet, 10 MG PO QHS, (Reported) Trazodone HCl (Trazodone HCl) 150 Mg Tablet, 150 MG PO QHS, (Reported) Scheduled PRN Albuterol Sulfate (Ventolin Hfa) 18 Gm Hfa.aer.ad, 2 PUFF INH Q4H PRN for SOB/WHEEZING, (Reported) Allergies Coded Allergies: No Known Allergies (Verified , 12/12/06) ALYSSA GARCAI MD Oct 27, 2019 15:35
== END 2019-10-27 15:12 | disposition home or self-care (01) | DRG 383 ==
LOC: M ED 16:10 → EEVIPCON 19:34 → M ED INP 19:34 → M MS4PR 20:40 → M MSPAV 10-22 14:40
PROVIDERS: ADMIT Internal Medicine; ATTEND Internal Medicine
PROC: 02HV33Z Insertion of Infusion Device into Superior Vena Cava, Percutaneous Approach (ICD-10-PCS; principal; 2019-10-21)
DX: L03.114 Cellulitis of left upper limb (principal); F32.9 Major depressive disorder, single episode, unspecified; F41.9 Anxiety disorder, unspecified; F15.10 Other stimulant abuse, uncomplicated; F17.210 Nicotine dependence, cigarettes, uncomplicated; M65.9 Synovitis and tenosynovitis, unspecified; D64.9 Anemia, unspecified; M60.9 Myositis, unspecified; J45.909 Unspecified asthma, uncomplicated; N73.9 Female pelvic inflammatory disease, unspecified; F10.10 Alcohol abuse, uncomplicated; Z86.14 Personal history of Methicillin resistant Staphylococcus aureus infection; Z79.899 Other long term (current) drug therapy

== ENCOUNTER 2021-10-03 08:18 | Emergency (ER) | payer OTHER ==
[~2021-10-03] VITALS: Ht 157.5 cm; Wt 62.6 kg
[~2021-10-03 08:18] MED LIST changes: +BENZ-52 PO; +CLIN150C17 PO; +LORA-930 PO; +MIRT1TAB17 PO; -OLAN10TA2 PO; +OLAN1TAB20 PO; +VENTAER INH
--- NOTE | 2021-10-03 10:35 | REP ---
INDICATION: post trauma cramping approx 16 weeks gest COMPARISON: None. TECHNIQUE: Limited transabdominal and transvaginal obstetrical ultrasound with color Doppler evaluation. FINDINGS: Examination demonstrates a single live intrauterine in breech presentation. motion is identified by technologist. Placenta is noted posteriorly, grade 1 and low lying approximately 1 cm from the closed internal os. No evidence for placental abruption. Amniotic fluid volume is normal. Cervix measures 4.9 cm in length and appears closed.. Selected gestational age: 18 weeks 3 days with CECIL 03[birth year]03/2022. FHR equals 155 beats per minute. IMPRESSION: Single live intrauterine in breech presentation. Low lying placenta. <Electronically signed by Genaro Winters > 10/03/21 1039
--- OUTSIDE RECORDS SUMMARY | 2021-10-03 10:38 | CCD ---
Author Author [facility] Organization [facility] Address Unknown Phone Unavailable Care Team Providers Care Health Education Teacher Name Role Phone Ivy Elizondo BATTERY INSTALLER BATTERY INSTALLER Unavailable Unavailable Odell Reyes CROP SETTING OUT MACHINE OPERATOR Unavailable Unavailable Odell Reyes CROP SETTING OUT MACHINE OPERATOR Unavailable Unavailable Odell Reyes CROP SETTING OUT MACHINE OPERATOR Unavailable Unavailable Lu Sands Unavailable UNKNOWN Unavailable Unavailable KHUSHI, H CARMINE CROP SETTING OUT MACHINE OPERATOR Unavailable Unavailable KHUSHI, H CARMINE CROP SETTING OUT MACHINE OPERATOR Unavailable Unavailable KHUSHI, H CARMINE CROP SETTING OUT MACHINE OPERATOR Unavailable Unavailable KHUSHI, H CARMINE CROP SETTING OUT MACHINE OPERATOR Unavailable Unavailable KHUSHI, H CARMINE CROP SETTING OUT MACHINE OPERATOR Unavailable Unavailable KHUSHI, H CARMINE CROP SETTING OUT MACHINE OPERATOR Unavailable Unavailable KHUSHI, H CARMINE CROP SETTING OUT MACHINE OPERATOR Unavailable Unavailable KHUSHI, H CARMINE CROP SETTING OUT MACHINE OPERATOR Unavailable Unavailable KHUSHI, H CARMINE CROP SETTING OUT MACHINE OPERATOR Unavailable Unavailable Tatiana Isidro BATTERY INSTALLER Unavailable Unavailable Tatiana Isidro BATTERY INSTALLER Unavailable Unavailable CRISTOPHER WU CROP SETTING OUT MACHINE OPERATOR Unavailable Unavailable CRISTOPHER WU CROP SETTING OUT MACHINE OPERATOR Unavailable Unavailable CRISTOPHER WU CROP SETTING OUT MACHINE OPERATOR Unavailable Unavailable BROWN, CRISTOPHER SHANTE CROP SETTING OUT MACHINE OPERATOR Unavailable Unavailable BROWN, CRISTOPHER SHANTE CROP SETTING OUT MACHINE OPERATOR Unavailable Unavailable BROWN, CRISTOPHER SHANTE CROP SETTING OUT MACHINE OPERATOR Unavailable Unavailable BROWN, CRISTOPHER SHANTE CROP SETTING OUT MACHINE OPERATOR Unavailable Unavailable BROWN, CRISTOPHER SHANTE CROP SETTING OUT MACHINE OPERATOR Unavailable Unavailable BROWN, CRISTOPHER SHANTE CROP SETTING OUT MACHINE OPERATOR Unavailable Unavailable BROWN, CRISTOPHER SHANTE CROP SETTING OUT MACHINE OPERATOR Unavailable Unavailable BROWN, CRISTOPHER SHANTE CROP SETTING OUT MACHINE OPERATOR Unavailable Unavailable BROWN, CRISTOPHER SHANTE CROP SETTING OUT MACHINE OPERATOR Unavailable Unavailable BROWN, CRISTOPHER SHANTE CROP SETTING OUT MACHINE OPERATOR Unavailable Unavailable BROWN, CRISTOPHER SHANTE CROP SETTING OUT MACHINE OPERATOR Unavailable Unavailable BROWN, CRISTOPHER SHANTE CROP SETTING OUT MACHINE OPERATOR Unavailable Unavailable BROWN, CRISTOPHER SHANTE CROP SETTING OUT MACHINE OPERATOR Unavailable Unavailable BROWN, CRISTOPHER SHANTE CROP SETTING OUT MACHINE OPERATOR Unavailable Unavailable BROWN, CRISTOPHER SHANTE CROP SETTING OUT MACHINE OPERATOR Unavailable Unavailable BROWN, CRISTOPHER SHANTE CROP SETTING OUT MACHINE OPERATOR Unavailable Unavailable BROWN, CRISTOPHER SHANTE CROP SETTING OUT MACHINE OPERATOR Unavailable Unavailable BROWN, CRISTOPHER SHANTE CROP SETTING OUT MACHINE OPERATOR Unavailable Unavailable BROWN, CRISTOPHER SHANTE CROP SETTING OUT MACHINE OPERATOR Unavailable Unavailable BROWN, CRISTOPHER SHANTE CROP SETTING OUT MACHINE OPERATOR Unavailable Unavailable BROWN, CRISTOPHER SHANTE CROP SETTING OUT MACHINE OPERATOR Unavailable Unavailable BROWN, CRISTOPHER SHANTE CROP SETTING OUT MACHINE OPERATOR Unavailable Unavailable BROWN, CRISTOPHER SHANTE CROP SETTING OUT MACHINE OPERATOR Unavailable Unavailable BROWN, CRISTOPHER SHANTE CROP SETTING OUT MACHINE OPERATOR Unavailable Unavailable BROWN, CRISTOPHER SHANTE CROP SETTING OUT MACHINE OPERATOR Unavailable Unavailable BROWN, CRISTOPHER SHANTE CROP SETTING OUT MACHINE OPERATOR Unavailable Unavailable BROWN, CRISTOPHER SHANTE CROP SETTING OUT MACHINE OPERATOR Unavailable Unavailable BROWN, CRISTOPHER SHANTE CROP SETTING OUT MACHINE OPERATOR Unavailable Unavailable BROWN, CRISTOPHER SHANTE CROP SETTING OUT MACHINE OPERATOR Unavailable Unavailable BROWN, CRISTOPHER SHANTE CROP SETTING OUT MACHINE OPERATOR Unavailable Unavailable BROWN, CRISTOPHER SHANTE CROP SETTING OUT MACHINE OPERATOR Unavailable Unavailable BROWN, CRISTOPHER SHANTE CROP SETTING OUT MACHINE OPERATOR Unavailable Unavailable BROWN, CRISTOPHER SHANTE CROP SETTING OUT MACHINE OPERATOR Unavailable Unavailable BROWN, CRISTOPHER SHANTE CROP SETTING OUT MACHINE OPERATOR Unavailable Unavailable BROWN, CRISTOPHER SHANTE CROP SETTING OUT MACHINE OPERATOR Unavailable Unavailable BROWN, CRISTOPHER SHANTE CROP SETTING OUT MACHINE OPERATOR Unavailable Unavailable Re-disclosure Warning The records that you are about to access may contain information from federally-assisted alcohol or drug abuse programs. If such information is present, then the following federally mandated warning applies: This information has been disclosed to you from records protected by federal confidentiality rules (42 CFR part 2). The federal rules prohibit you from making any further disclosure of this information unless further disclosure is expressly permitted by the written consent of the person to whom it pertains or as otherwise permitted by 42 CFR part 2. A general authorization for the release of medical or other information is NOT sufficient for this purpose. The Federal rules restrict any use of the information to criminally investigate or prosecute any alcohol or drug abuse patient.The records that you are about to access may contain highly sensitive health information, the redisclosure of which is protected by Article 27-F of the [facility] Public Health law. If you continue you may have access to information: Regarding HIV / AIDS; Provided by facilities licensed or operated by the [facility] Office of Mental Health; or Provided by the [facility] Office for People With Developmental Disabilities. If such information is present, then the following [facility] mandated warning applies: This information has been disclosed to you from confidential records which are protected by state law. State law prohibits you from making any further disclosure of this information without the specific written consent of the person to whom it pertains, or as otherwise permitted by law. Any unauthorized further disclosure in violation of state law may result in a fine or snf sentence or both. A general authorization for the release of medical or other information is NOT sufficient authorization for further disc losure. Encounters Encounter Providers Location Date Indications Data Source(s ) Outpatient Attender: SHANTE WU NP CPSCAORT-CPSGNOBG 08/18 01:22:00 PM EDT - 09/05/2021 01:23:00 PM EDT [facility] Patient discharged. Outpatient Attender: UNKNOWN KANDILABEJN 08/15/2021 03:12:00 PM E [facility] Outpatient Attender: GENESIS Wu FNPAttender: SHANTE WU NP ED-IMAG 08/15/2021 10:47:00 AM EDT - 08/15/2021 10:48:00 AM EDT [place] [address] Patient discharged. Outpatient Attender: UNKNOWN CPSRAHEEM-LABEJN 08/09/2021 08:05:00 PM E [facility] Outpatient Attender: GENESIS Wu FNPAttender: SHANTE WU NP ED-LABPNP 08/09/2021 03:10:00 PM EDT - 08/09/2021 03:11:00 PM EDT [place] [address] Patient discharged. Outpatient Attender: SHANTE WU NP CPSCAORT-CPSGNOBG 07/20 01:44:00 PM EDT - 08/09/2021 01:45:00 PM EDT [facility] Patient discharged. TEMP Forensic Telemed MM Diagnostic Eval New [facility] 04:00:00 AM EST - 01/05/2021 04:00:00 AM EST [facility] ([facility]) Attender: CARMINE PURI NP 01/05/2021 12:00:00 AM EST [facility] ([facility]) Attender: Lu Sands 12/28/2020 12:00:[address] [facility] ([facility]) Long Term - Case Management Attender: Lu Wicho [facility] ail 12/27/2020 12:15:00 PM EST - 12/27/2020 12:15:00 PM EST [facility] ([facility]) Attender: Lu Sands 12/16/2020 12:00:[address] [facility] ([facility]) Attender: Lu Sands 12/16/2020 12:00:[address] [facility] ([facility]) Brief Individual Psychotherapy - 30 min Attender: Lu Raymond [facility] 12/15/2020 01:50:00 AM EST - 12/15/2020 01:50:00 AM EST [facility] ([facility]) Long Term - Case Management Attender: Lu Sands [facility] 12/15/2020 01:30:00 AM EST - 12/15/2020 01:30:00 AM EST [facility] ([facility]) Telemed Diagnostic Eval Attender: Malcolm Reyes NP [facility] 12/13/2020 08:00:00 AM EST - 12/13/2020 08:00:00 AM EST [facility] ([facility]) Attender: Malcolm Reyes NP 12/13/2020 12:00:00 AM EST [facility] ([facility]) Brief Individual Psychotherapy - 30 min Attender: Lu eason [facility] 12/01/2020 08:30:00 AM EST - 12/01/2020 08:30:00 AM EST [facility] ([facility]) Attender: Lu Sands 12/01/2020 12:00:[address] [facility] ([facility]) Outpatient Attender: GENESIS [facility] 08/05/2020 10:10:01 A M EDT [facility] Outpatient Attender: GENESIS [facility] 08/04/2020 03:54:00 P M EDT [facility] Functional Status Medications Medication Brand Name Start Date Product Form Dose Route Admi nistrative Instructions Pharmacy Instructions Status Indications Reaction Description Data Source(s) Trazodone Hydrochloride 100 MG Oral Tablet trazodone 12/13 12:00:00 AM EST 100 mg by mouth completed <td ID="Medic ationRxNorm_2">567617</td><td ID="MedicationMedication_2">trazodone</td><td ID="MedicationRoute_2">by mouth</td><td ID="MedicationRouteConcept_2">V20003</td><td ID="MedicationStartDate_2">12/13/2020</td><td ID="MedicationStopDate_2">06/11/2021</td><td ID="MedicationDosageFrequency_2">at bedtime</td><td ID="MedicationDuration_2">30</td><td ID="MedicationFormulaStrength_2">100 mg</td><td ID="MedicationDosageForm_2">tablet</td><td ID="MedicationDosageFormCode_2"></td><td ID="MedicationDosageDescription_2"></td><td ID="MedicationMedicationId_2">[id number]</td><td ID="MedicationAccount_2">[id number]</td><td ID="MedicationNpid_2">[id number]</td><td ID="MedicationAuthorFirstName_2">Malcolm</td><td ID="MedicationAuthorLastName_2">Reyes</td><td ID="MedicationTaxonomyCode_2">[id number]</td><td ID="MedicationTaxonomyDesc_2">Nurse Practitioner</td><td ID="MedicationPhoneNumber_2">[phone]</td> [facility] ([facility]) Trazodone Hydrochloride 100 MG Oral Tablet trazodone 12/13 12:00:00 AM EST 100 mg by mouth completed <td ID="Medic ationRxNorm_3">492639</td><td ID="MedicationMedication_3">trazodone</td><td ID="MedicationRoute_3">by mouth</td><td ID="MedicationRouteConcept_3">T98446</td><td ID="MedicationStartDate_3">12/13/2020</td><td ID="MedicationStopDate_3">06/11/2021</td><td ID="MedicationDosageFrequency_3">at bedtime</td><td ID="MedicationDuration_3">30</td><td ID="MedicationFormulaStrength_3">100 mg</td><td ID="MedicationDosageForm_3">tablet</td><td ID="MedicationDosageFormCode_3"></td><td ID="MedicationDosageDescription_3"></td><td ID="MedicationMedicationId_3">[id number]</td><td ID="MedicationAccount_3">[id number]</td><td ID="MedicationNpid_3">[id number]</td><td ID="MedicationAuthorFirstName_3">Malcolm</td><td ID="MedicationAuthorLastName_3">Reyes</td><td ID="MedicationTaxonomyCode_3">[id number]</td><td ID="MedicationTaxonomyDesc_3">Nurse Practitioner</td><td ID="MedicationPhoneNumber_3">[phone]</td> [facility] ([facility]) Mirtazapine 30 MG Oral Tablet mirtazapine 12/13/2020 12:00:00 AM EST 30 mg by mouth completed <td ID="Medica tionRxNorm_2">989740</td><td ID="MedicationMedication_2">mirtazapine</td><td ID="MedicationRoute_2">by mouth</td><td ID="MedicationRouteConcept_2">N01201</td><td ID="MedicationStartDate_2">12/13/2020</td><td ID="MedicationStopDate_2">06/11/2021</td><td ID="MedicationDosageFrequency_2">at bedtime</td><td ID="MedicationDuration_2">30</td><td ID="MedicationFormulaStrength_2">30 mg</td><td ID="MedicationDosageForm_2">tablet</td><td ID="MedicationDosageFormCode_2"></td><td ID="MedicationDosageDescription_2"></td><td ID="MedicationMedicationId_2">[id number]</td><td ID="MedicationAccount_2">[id number]</td><td ID="MedicationNpid_2">[id number]</td><td ID="MedicationAuthorFirstName_2">Malcolm</td><td ID="MedicationAuthorLastName_2">Reyes</td><td ID="MedicationTaxonomyCode_2">[id number]</td><td ID="MedicationTaxonomyDesc_2">Nurse Practitioner</td><td ID="MedicationPhoneNumber_2">[phone]</td> [facility] ([facility]) Mirtazapine 30 MG Oral Tablet mirtazapine 12/13/2020 12:00:00 AM EST 30 mg by mouth completed <td ID="Medica tionRxNorm_1">135527</td><td ID="MedicationMedication_1">mirtazapine</td><td ID="MedicationRoute_1">by mouth</td><td ID="MedicationRouteConcept_1">U64357</td><td ID="MedicationStartDate_1">12/13/2020</td><td ID="MedicationStopDate_1">06/11/2021</td><td ID="MedicationDosageFrequency_1">at bedtime</td><td ID="MedicationDuration_1">30</td><td ID="MedicationFormulaStrength_1">30 mg</td><td ID="MedicationDosageForm_1">tablet</td><td ID="MedicationDosageFormCode_1"></td><td ID="MedicationDosageDescription_1"></td><td ID="MedicationMedicationId_1">[id number]</td><td ID="MedicationAccount_1">[id number]</td><td ID="MedicationNpid_1">[id number]</td><td ID="MedicationAuthorFirstName_1">Malcolm</td><td ID="MedicationAuthorLastName_1">Reyes</td><td ID="MedicationTaxonomyCode_1">[id number]</td><td ID="MedicationTaxonomyDesc_1">Nurse Practitioner</td><td ID="MedicationPhoneNumber_1">[phone]</td> [facility] ([facility]) olanzapine 5 MG Oral Tablet olanzapine 12/13/2020 12:00:00 AM EST 5 mg by mouth completed <td ID="Medica tionRxNorm_1">888110</td><td ID="MedicationMedication_1">olanzapine</td><td ID="MedicationRoute_1">by mouth</td><td ID="MedicationRouteConcept_1">A27150</td><td ID="MedicationStartDate_1">12/13/2020</td><td ID="MedicationStopDate_1">06/11/2021</td><td ID="MedicationDosageFrequency_1">twice a day</td><td ID="MedicationDuration_1">30</td><td ID="MedicationFormulaStrength_1">5 mg</td><td ID="MedicationDosageForm_1">tablet</td><td ID="MedicationDosageFormCode_1"></td><td ID="MedicationDosageDescription_1"></td><td ID="MedicationMedicationId_1">[id number]</td><td ID="MedicationAccount_1">[id number]</td><td ID="MedicationNpid_1">[id number]</td><td ID="MedicationAuthorFirstName_1">Malcolm</td><td ID="MedicationAuthorLastName_1">Reyes</td><td ID="MedicationTaxonomyCode_1">[id number]</td><td ID="MedicationTaxonomyDesc_1">Nurse Practitioner</td><td ID="MedicationPhoneNumber_1">[phone]</td> [facility] ([facility]) olanzapine 5 MG Oral Tablet olanzapine 12/13/2020 12:00:00 AM EST 5 mg by mouth completed <td ID="Medica tionRxNorm_3">807256</td><td ID="MedicationMedication_3">olanzapine</td><td ID="MedicationRoute_3">by mouth</td><td ID="MedicationRouteConcept_3">A94260</td><td ID="MedicationStartDate_3">12/13/2020</td><td ID="MedicationStopDate_3">06/11/2021</td><td ID="MedicationDosageFrequency_3">twice a day</td><td ID="MedicationDuration_3">30</td><td ID="MedicationFormulaStrength_3">5 mg</td><td ID="MedicationDosageForm_3">tablet</td><td ID="MedicationDosageFormCode_3"></td><td ID="MedicationDosageDescription_3"></td><td ID="MedicationMedicationId_3">[id number]</td><td ID="MedicationAccount_3">[id number]</td><td ID="MedicationNpid_3">[id number]</td><td ID="MedicationAuthorFirstName_3">Malcolm</td><td ID="MedicationAuthorLastName_3">Reyes</td><td ID="MedicationTaxonomyCode_3">[id number]</td><td ID="MedicationTaxonomyDesc_3">Nurse Practitioner</td><td ID="MedicationPhoneNumber_3">[phone]</td> [facility] ([facility]) Insurance Providers Payer name Policy type / Coverage type Policy ID Covered constitution party ID Covered constitution party's relationship to kirk Policy Kirk Plan Information [facility] [id number] Patient [id number] [facility] PLAN [facility] [id number] SP [id number] Medicaid S [id number] S [id number] Managed Care - Community Plan [facility] P [id number] S [id number] [facility] PLAN [facility] [id number] SP [id number] UNHC COMMUNITY PLAN MCDHMO [id number] SP [id number] UNHC COMMUNITY PLAN MCDHMO [id number] SP [id number] Medicaid S [id number] S [id number] UNHC COMMUNITY PLAN MCDHMO [id number] SP [id number] UNHC COMMUNITY PLAN MCDHMO [id number] SP [id number] UNHC COMMUNITY PLAN MCDHMO [id number] SP [id number] Medicaid S [id number] S [id number] Managed Care - Community Plan [employer] P [id number] S [id number] Managed Care - UHC Community Plan P [id number] S [id number] Medicaid S [id number] S [id number] Managed Care - UHC Community Plan P [id number] S [id number] UNHC COMMUNITY PLAN MCDHMO [id number] SP [id number] UNHC COMMUNITY PLAN MCDHMO [id number] SP [id number] UNHC COMMUNITY PLAN MCDHMO [id number] SP [id number] MEDICAID [id number] SP [id number] MEDICAID [id number] SP [id number] UNHC COMMUNITY PLAN MCDHMO [id number] SP [id number] UNHC COMMUNITY PLAN MCDHMO [id number] SP [id number] [facility] COMMUNITY PL [id number] S [id number] UNITED HE[employer]CARE COMMUNITY PL [id number] S [id number] UNITED HE[employer]CARE [id number] S [id number] [facility] COMMUNITY PL [id number] S [id number] MEDICAID [id number] S [id number] UNITED HE[employer]CARE [id number] S [id number] Sliding Fee Scale O [id number] S [id number] [employer](MCAID) O [id number] S [id number] Medicaid S [id number] S [id number] Managed Care - Community Plan United [employer] P [id number] S [id number] Self Pay P UNAVAILABLE S UNAVAILA BLE [employer] [place] DEPT [id number] SP [id number] [employer]ET[employer]NATIONAL TRADE ANALYST DE O [id number] O [id number] [place] [employer] F O [id number] O [id number] [place] [employer] FAC [id number] SP [id number] [facility] [id number] SP [id number] [facility] Oscar/MCR Health Maintenance Organization (HMO) [id number] [facility](MCAID) O [id number] S [id number] [facility](MCAID) O [id number] S [id number] Problems, Conditions, and Diagnoses Code Display Name Description Problem Type Effective Dates Data Source(s) Z34.81 Encounter for supervision of other geraldine l , first trimester ENCOUNTER FOR SUPRVSN OF NORMAL , FIRST TRIMESTER Diagnosis 09/05/2021 01:22:00 PM [facility] O09.899 Supervision of other high risk pregnanci es, unspecified trimester SUPERVISION OF OTHER HIGH RISK PREGNANCIES, UNSP TRIMESTER Diagnosis 09/05/2021 01:22:00 PM [facility] O99.320 Drug use complicating , unspeci fied trimester DRUG USE COMPLICATING , UNSPECIFIED TRIMESTER Diagnosis 09/05/20 01:22:00 PM [facility] Z3A.11 11 weeks gestation of 11 WEEKS GESTATI ON OF Diagnosis 08/09/2021 03:10:00 PM [facility] Z34.91 Encounter for supervision of normal , unspecified, first trimester ENCNTR FOR SUPRVSN OF NORMAL PREG, UNSP, FIRST TRIMESTER Kamini gnosis 08/09/2021 03:10:00 PM [facility] N91.2 Amenorrhea, unspecified AMENORRHEA, UNSPECIFIED Diagno sis 08/09/2021 01:44:00 PM [facility] 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, in r emission OTHER PSYCHOACTIVE SUBSTANCE ABUSE, IN REMISSION Diagnosis 08/09/2021 01:44:00 PM [facility] Z32.01 Encounter for test, result pos itive ENCOUNTER FOR TEST, RESULT POSITIVE Diagnosis 08/09/2021 01:44:00 PM [facility] F12.20 Cannabis dependence, uncomplicated Cannabis Use Disorder, Moderate Condition 01/05/2021 12:00:00 AM EST [facility] ([facility]) F31.9 Bipolar disorder, unspecified Unspecified Bipola r and Related Disorder Condition 01/05/2021 12:00:00 AM EST [facility] ([facility]) F15.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, uncomplicate d Stimulant Use Disorder, Moderate: Other or unspecified stimulant Condition 12/28/2020 12:00:00 AM EST [facility] ([facility]) F41.9 Anxiety disorder, unspecified Unspecified Anxiety Diso rder Condition 12/28/2020 12:00:00 AM EST [facility] ([facility]) F25.0 Schizoaffective disorder, bipolar type S chizoaffective Disorder, Bipolar type Condition 12/28/2020 12:00:00 AM EST [facility] ([facility]) F31.60 Bipolar disorder, current episode mixed, unspecified Bipolar disorder, current episode mixed, unspecified Condition 12/01/2020 12:00:00 AM ES T [facility] ([facility]) F43.12 Post-traumatic stress disorder, chronic Post-traumatic stress disorder, chronic Condition 12/01/2020 12:00:00 AM EST [facility] ([facility]) Surgeries/Procedures Procedure Description Date Indications Data Source(s) OFFICE OUTPATIENT VISIT 10 MINUTES OFFICE/OUTPATIENT VISIT E ST 09/05/2021 12:00:00 AM [facility] US UTERUS 14 WK TRANSABDL GESTAT OB US < 14 W KS SINGLE FETUS 08/15/2021 12:00:00 AM [facility] BLOOD TYPING RH D BLOOD TYPING SEROLOGIC RH(D) 08/15/2021 12:00:00 AM [facility] BLOOD TYPING ABO BLOOD TYPING SEROLOGIC ABO 08/15/2021 12:00:00 AM [facility] ANTIBODY SCREEN RBC EACH SERUM TECHNIQUE RBC ANTIBODY SCREEN 08/15/2021 12:00:00 AM [facility] CFTR GENE ANALYSIS COMMON VARIANTS CFTR GENE COM VARIANTS 12:00:00 AM [facility] LEAD ASSAY OF LEAD 08/15/2021 12:00:00 AM [facility] ANTIBODY VARICELLA-ZOSTER VARICELLA-ZOSTER ANTIBODY 08/15/2021 1 2:00:00 AM [facility] THYROID STIMULATING HORMONE TSH ASSAY THYROID STIM HORMONE 0 08/15/2021 12:00:00 AM [facility] IAAD EIA HEPATITIS B SURFACE ANTIGEN HEPATITIS B SURFACE AG IA 08/15/2021 12:00:00 AM [facility] ANTIBODY TREPONEMA PALLIDUM TREPONEMA PALLIDUM 08/15/2021 12:00:00 AM [facility] IAAD EIA HIV-1 AG W/HIV-1&HIV-2 ANTBDY SINGLE HIV-1 AG W/HIV -1 & HIV-2 AB 08/15/2021 12:00:00 AM [facility] ANTIBODY RUBELLA RUBELLA ANTIBODY 08/15/2021 12:00:00 AM [facility] HEPATITIS C ANTIBODY HEPATITIS C AB TEST 08/15/2021 12:00:00 AM [facility] COLLECTION VENOUS BLOOD VENIPUNCTURE ROUTINE VENIPUNCTURE 12:00:00 AM [facility] BLOOD COUNT COMPLETE AUTO&AUTO DIFRNTL WBC COUNT COMPLETE CB C W/AUTO DIFF WBC 08/15/2021 12:00:00 AM [facility] GONADOTROPIN CHORIONIC QUANTITATIVE CHORIONIC GONADOTROPIN T EST 08/15/2021 12:00:00 AM [facility] IADNA NEISSERIA GONORRHOEAE AMPLIFIED PROBE TQ N.GONORRHOEAE DNA AMP PROB 08/09/2021 12:00:[facility] CH[facility] TRACHOMATIS AMPLIFIED PROBE TQ CHYLMD TRACH DNA AMP PROBE 08/09/2021 12:00:00 AM [facility] TRICHOMONAS VAGINALIS DIRECT PROBE TQ TRICHOMONAS VAGI N DIR PROBE 08/09/2021 12:00:00 AM [facility] GARDNERELLA VAGINALIS DIRECT PROBE TQ MAYS VAG DNA DIR PROBE 08/09/2021 12:00:00 AM [facility] LORETTA SPECIES DIRECT PROBE TQ LORETTA DNA DIR PROBE 08/09/2021 12:00:00 AM [facility] [address]691 DRUG TEST PRSMV CHEM ANLYZR 08/09/2021 12:00:00 AM [facility] CULTURE BACTERIAL QUANTTATIVE COLONY COUNT URINE URINE CULTU RE/COLONY COUNT 08/09/2021 12:00:00 AM [facility] 83315 DRUG SCREEN QUANTALCOHOLS 08/09/2021 12:00:00 AM [facility] OFFICE OUTPATIENT VISIT 5 MINUTES OFFICE/OUTPATIENT VISIT ES T 08/09/2021 12:00:00 AM [facility] URINE TEST VISUAL COLOR CMPRSN METHS URINE PREGNAN CY TEST 08/09/2021 12:00:00 AM [facility] URNLS DIP STICK/TABLET RGNT NON-AUTO W/O MICRSCP URINALYSIS NONAUTO W/O SCOPE [facility] Eval New Pt 01/05/2021 12:00:00 AM EST - 01/05/2021 12:00:00 AM EST [facility] ([facility]) TEMP Forensic Telemed MM Diagnostic Eval New Pt 2020 12:00:00 AM EST [facility] ([facility]) Long Term - Case Management 12/28/2020 12:00: 00 AM EST - 12/28/2020 12:00:00 AM EST [facility] ([facility]) Long Term - Case Management 12/27/2020 12:00:00 AM EST [facility] ([facility]) Brief Individual Psychotherapy - 30 min 12/16/2020 12:00:00 AM EST - 12/16/2020 12:00:00 AM EST [facility] ([facility]) Long Term - Case Management 12/16/2020 12:00: 00 AM EST - 12/16/2020 12:00:00 AM EST [facility] ([facility]) Brief Individual Psychotherapy - 30 min 12/15/2020 12: 00:00 AM EST [facility] ([facility]) Long Term - Case Management 12/15/2020 12:00:00 AM EST [facility] ([facility]) Telemed Diagnostic Eval 12/13/2020 12:00 :00 AM EST - 12/13/2020 12:00:00 AM EST [facility] ([facility]) Telemed Diagnostic Eval 12/13/2020 12:00:00 AM EST [facility] ([facility]) Brief Individual Psychotherapy - 30 min 12/01/2020 12:00:00 AM EST - 12/01/2020 12:00:00 AM EST [facility] ([facility]) Brief Individual Psychotherapy - 30 min 12/01/2020 12: 00:00 AM EST [facility] ([facility]) Results ID Date Data Source [id number] 08/15/2021 07:03:00 PM EDT [facility] Name Value Range Interpretation Code Description Data Ania rce(s) Supporting Document(s) BLOOD TYPE PATIENT A Positive Normal (applies to non-numer ic results) [facility] ANTIBODY SCREEN NEGATIVE Normal (applies to non-numeric results) [facility] ID Date Data Source [id number] 08/23/2021 12:58:00 PM EDT [facility] Name Value Range Interpretation Code Description Data Ania rce(s) Supporting Document(s) Varicella-Zoster IgG Ab,S res See Note No rmal (applies to non-numeric results) [facility] Presence of detectable Varicella Zoster virus IgG antibodies. Test performed or referred by The [address] [address] ID Date Data Source [id number] 08/23/2021 12:58:00 PM T [facility] Name Value Range Interpretation Code Description Data Ania rce(s) Supporting Document(s) Hb Electrophoresis Interpret Normal (applies to non-numeric results) [facility] No electrophoretic evidence of abnormal hemoglobin or beta thalassemia. See comment. Comment: These results do not exclude alpha thalassemia. The vast majority of hemoglobin variants and beta thalassemias are excluded, although some rare clinically significant hemoglobin disorders are electrophoretically silent. If otherwise unexplained lifelong/familial symptoms such as hemolysis (i.e. Cody body hemolytic anemia), microcytosis, erythrocytosis, cyanosis, or hypoxia are present and additional testing is desired, please call the [facility] ( ). If alpha thalassemia is a consideration, alpha globin gene deletion/duplication analysis is available (ATHAL/Alpha-Globin Gene Analysis). Additional sample required. Methodologies utilized in this interpretation include: capillary electrophoresis, HPLC. HBELEC Hemoglobin A2 2.0-3.3 Normal (applies to non-num radha results) [facility] ADDITIONAL INFORMATIO N This test has been modified from the safety coordinator's instructions. Its performance characteristics were determined by [facility] in a manner consistent with CLIA requirements. This test has not been cleared or approved by the U.S. Food and Drug Administration. HBELC Hemoglobin F 0.0-0.9 Normal (applies to non-numer ic results) [facility] HBELC Hemoglobin A 95.8-98.0 Normal (applies to non-numer ic results) [facility] HPLC Hb Variant,B Normal (applies to non-numeri c results) [facility] ADDITIONAL INFORMATIO N This test has been modified from the safety coordinator's instructions. Its performance characteristics were determined by [facility] in a manner consistent with CLIA requirements. This test has not been cleared or approved by the U.S. Food and Drug Administration. Test Performed by: [facility] [place] [address] [employer] Manager: Iraida Espinoza M.D. Ph.D.; CLIA# [id number] ID Date Data Source [id number] 08/22/2021 04:07:00 PM EDT [facility] Name Value Range Interpretation Code Description Data Ania rce(s) Supporting Document(s) CF Mutation Result Summary Normal (applies to n on-numeric results) [facility] CF Mutation Result Normal (applies to non-numer ic results) [facility] RESULT: None of the listed mutations wer e detected. CF Mutation Interpretation Normal (applies to n on-numeric results) [facility] Having excluded the listed mutations, th is result decreases the likelihood but does not exclude the possibility that this individual is a carrier of or affected with cystic fibrosis (CF). The degree to which this result reduces the patient's risk depends on the ethnic background and family history of the patient. Because this information was not provided, we are unable to provide a revised risk assessment at this time. The risk that this individual is a carrier of another CF mutation is listed below. Ethnicity Risk (Detection rate, Carrier Freq) Northern (91%, 12/12) Mixed 134 (82%, 12/12) Southern 115 (79%, 12/12) Eastern (77%, 12/17) Ashkenazi Cheondoism (97%, 12/12) Guyanese Nigerien (91%, 12/12) 1338 (81%, ) Australian 1251 (82%, ) Australian* 1194 (54%, ) *does not apply to individuals of Citizen Of The [place] ancestry These calculations are based on the mutation detection rates and population carrier frequencies noted in the chart and assume no family history of CF. Because there is little information available about the carrier frequency and mutation detection rates for individuals of other ethnicities, we are unable to provide a revised risk assessment for ethnicities other than those listed. If the patient has a family history of CF, contact our laboratory for a revised risk assessment. If there is a suspected diagnosis of CF, correlation between other laboratory tests and clinical history is recommended. Additional genetic testing strategies, such as full gene analysis of the CFTR gene (CFTRZ / CFTR Gene, Full Gene Analysis), should be considered for identifying mutations that are not detected by this assay. Contact the [facility] at for further discussion regarding this option. A genetic consultation may be of benefit. ADDITIONAL INFORMATION An online research opportunity called [employer] ([email or web address]), a project of [employer], is available for the recipient of this genetic test. This patient registry collects de-identified genetic and health information to advance the knowledge of genetic variants. [facility] is a collaborator of [employer]. This may not be applicable for all tests. Test results should be interpreted in the context of clinical findings, family history, and other laboratory data. Misinterpretation of results may occur if the information provided is inaccurate or incomplete. Rare polymorphisms exist that could lead to false- negative or false-positive results. If results obtained do not match the clinical findings, additional testing should be considered. Bone Marrow transplants from allogenic donors will interfere with testing. Call [facility] for instructions for testing patients who have received a bone marrow transplant. One or more in silico tools were used to assist in the interpretation of these results. These tools are updated regularly and predictions for a given variant may change. Additionally, the predictability of these tools for the determination of pathogenicity is currently unvalidated. This test was developed and its performance characteristics determined by [facility] in a manner consistent with CLIA requirements. This test has not been cleared or approved by the U.S. Food and Drug Administration. CF Mutation Specimen Normal (applies to non-num radha results) [facility] CF Mutation Method Normal (applies to non-numer ic results) [facility] The multiplex PCR based assay utilizing the [employer] Array platform was used to detect 106 mutations, including the 23 mutations specified in the [employer] (ACMG) standards for population based carrier screening. The mutations are as follows: [id number], mopnpW456, G542X, G85E, R117H, I9327R (TGG>TGA), 621+1G>T, 711+1G>T, T5540K (C>A), D7002X (C>G), R334W, R347P, A455E, 1717-1G>A, R553X, R560T, G551D, 1898+1G>A, 2184delA, 2789+5G>A, 3120+1G>A, Y7028N, 3659delC, 3849+10kbC>T, the deletion of exons 2-3, 296+2T>A, E60X, R75X, 394_395delTT, 405+1G>A, 406-1G>A, E92X, 444delA, 457TAT>G, R117C, Y122X, 574delA, 663delT, G178R, 711+5G>A, 712-1G>T, H199Y, P205S, L206W, 876rye35, 935delA, 936delTA, qwkljU120, 1078delT, G330X, T338I, R347H, R352Q, Q359K, T360K, 1288insTA, S466X (C>A), S466X (C>G), G480C, Q493X, 1677delTA, C524X, S549N, S549R (T>G), Q552X, A559T, 1811+1.6kbA>G, 1812-1G>A, 1898+1G>T, 1898+1G>C, 1898+5G>T, P574H, 9080gcr29, 2043delG, 6387fvh4>A, 6387xqu29zmz6, 2108delA, 2143delT, 2183_2184delAAinsG, 2184insA, R709X, K710X, 2307insA, R764X, Q890X, 2869insG, 3171delC, 7811lor9, T6340V, M2341P (TGG>TAG), W5520Y (C>G), N7994A (C>A), E1724G, N7596S, T2122Y, R9696Z, 6224rys2, W4664Q, T8835E (TGG>TAG), 3791delC, N4091V, 3876delA, N3544Q, Y8104C, 3905insT, and 4016dupT mutations are detected. Poly T determination and confirmatory testing of homozygous results are performed as reflex tests when appropriate. CF Mutation Released By Normal (applies to non- numeric results) [facility] Test Performed by: [address] [address] [employer] Manager: Iraida Espinoza M.D. Ph.D.; CLIA# [id number] ID Date Data Source [id number] 08/22/2021 03:54:00 PM EDT [facility] Name Value Range Interpretation Code Description Data Ania rce(s) Supporting Document(s) CF Mutation Result Summary Normal (applies to n on-numeric results) [facility] CF Mutation Result Normal (applies to non-numer ic results) [facility] RESULT: None of the listed mutations wer e detected. CF Mutation Interpretation Normal (applies to n on-numeric results) [facility] Having excluded the listed mutations, th is result decreases the likelihood but does not exclude the possibility that this individual is a carrier of or affected with cystic fibrosis (CF). The degree to which this result reduces the patient's risk depends on the ethnic background and family history of the patient. Because this information was not provided, we are unable to provide a revised risk assessment at this time. The risk that this individual is a carrier of another CF mutation is listed below. Ethnicity Risk (Detection rate, Carrier Freq) Northern (91%, 12/12) Mixed 134 (82%, 12/12) Southern (79%, 12/12) Eastern (77%, 12/17) Ashkenazi Cheondoism 801 (97%, 12/12) Guyanese Nigerien (91%, 12/12) 1338 (81%, ) Australian 1251 (82%, ) Australian* 1194 (54%, ) *does not apply to individuals of Citizen Of The [place] ancestry These calculations are based on the mutation detection rates and population carrier frequencies noted in the chart and assume no family history of CF. Because there is little information available about the carrier frequency and mutation detection rates for individuals of other ethnicities, we are unable to provide a revised risk assessment for ethnicities other than those listed. If the patient has a family history of CF, contact our laboratory for a revised risk assessment. If there is a suspected diagnosis of CF, correlation between other laboratory tests and clinical history is recommended. Additional genetic testing strategies, such as full gene analysis of the CFTR gene (CFTRZ / CFTR Gene, Full Gene Analysis), should be considered for identifying mutations that are not detected by this assay. Contact the [facility] at for further discussion regarding this option. A genetic consultation may be of benefit. ADDITIONAL INFORMATION An online research opportunity called [employer] ([email or web address]), a project of [employer], is available for the recipient of this genetic test. This patient registry collects de-identified genetic and health information to advance the knowledge of genetic variants. [facility] is a collaborator of [employer]. This may not be applicable for all tests. Test results should be interpreted in the context of clinical findings, family history, and other laboratory data. Misinterpretation of results may occur if the information provided is inaccurate or incomplete. Rare polymorphisms exist that could lead to false- negative or false-positive results. If results obtained do not match the clinical findings, additional testing should be considered. Bone Marrow transplants from allogenic donors will interfere with testing. Call [facility] for instructions for testing patients who have received a bone marrow transplant. One or more in silico tools were used to assist in the interpretation of these results. These tools are updated regularly and predictions for a given variant may change. Additionally, the predictability of these tools for the determination of pathogenicity is currently unvalidated. This test was developed and its performance characteristics determined by [facility] in a manner consistent with CLIA requirements. This test has not been cleared or approved by the U.S. Food and Drug Administration. CF Mutation Specimen Normal (applies to non-num radha results) [facility] CF Mutation Method Normal (applies to non-numer ic results) [facility] The multiplex PCR based assay utilizing the [employer] Array platform was used to detect 106 mutations, including the 23 mutations specified in the [employer] (ACMG) standards for population based carrier screening. The mutations are as follows: [id number], uwofkU683, G542X, G85E, R117H, G5465J (TGG>TGA), 621+1G>T, 711+1G>T, L6081R (C>A), O3110D (C>G), R334W, R347P, A455E, 1717-1G>A, R553X, R560T, G551D, 1898+1G>A, 2184delA, 2789+5G>A, 3120+1G>A, Y2288B, 3659delC, 3849+10kbC>T, the deletion of exons 2-3, 296+2T>A, E60X, R75X, 394_395delTT, 405+1G>A, 406-1G>A, E92X, 444delA, 457TAT>G, R117C, Y122X, 574delA, 663delT, G178R, 711+5G>A, 712-1G>T, H199Y, P205S, L206W, 734rfh40, 935delA, 936delTA, zxnuhW133, 1078delT, G330X, T338I, R347H, R352Q, Q359K, T360K, 1288insTA, S466X (C>A), S466X (C>G), G480C, Q493X, 1677delTA, C524X, S549N, S549R (T>G), Q552X, A559T, 1811+1.6kbA>G, 1812-1G>A, 1898+1G>T, 1898+1G>C, 1898+5G>T, P574H, 4231fxj38, 2043delG, 5823bpc8>A, 6491jpu37cvi5, 2108delA, 2143delT, 2183_2184delAAinsG, 2184insA, R709X, K710X, 2307insA, R764X, Q890X, 2869insG, 3171delC, 8002crz0, U9511A, W3483I (TGG>TAG), C6859I (C>G), B6492G (C>A), T4606P, S2713F, L0112G, B1527G, 0416rtp7, C5161X, K6476U (TGG>TAG), 3791delC, Y8574F, 3876delA, J9097Q, A5694O, 3905insT, and 4016dupT mutations are detected. Poly T determination and confirmatory testing of homozygous results are performed as reflex tests when appropriate. CF Mutation Released By Normal (applies to non- numeric results) [facility] Test Performed by: [facility] [address] [employer] Manager: Iraida Espinoza M.D. Ph.D.; CLIA# [id number] ID Date Data Source [id number] 08/18/2021 01:35:00 PM EDT [facility] Name Value Range Interpretation Code Description Data Ania rce(s) Supporting Document(s) Lead,Blood (Venous) result <5.0 Normal (applies to n on-numeric results) [facility] ADDITIONAL INFORMATIO N Testing performed by Inductively Coupled Plasma-Mass Spectrometry (ICP-MS). This test was developed and its performance characteristics determined by [facility] in a manner consistent with CLIA requirements. This test has not been cleared or approved by the U.S. Food and Drug Administration. PBDV Patient Street Normal (applies to non-nume carmelita results) [facility] Patient [facility] Normal (applies to non-numeri c results) [facility] Patient State Normal (applies to non-numer ic results) [facility] Patient Zip [address] Normal (applies to non-numeric results) [facility] Normal (applies to non-nume carmelita results) [facility] Patient Phone Normal (applies to non-numer ic results) [facility] Race Normal (applies to non-numeri c results) [facility] Ethnicity Normal (applies to non-n umeric results) [facility] Patient Occupation Normal (applies to non- numeric results) [facility] Patient Employer Normal (applies to non-nu meric results) [facility] Name Normal (applies to non-numer ic results) [facility] Normal (applies to non-num radha results) [facility] City Normal (applies to non-numer ic results) [facility] State Normal (applies to non-nume carmelita results) [facility] PBDV Provider Zip [address] Normal (applies to non-numeri c results) [facility] Phone Normal (applies to non-nume carmelita results) [facility] Submitting Lab Phone Normal (applies to no n-numeric results) [facility] Test Performed by: [facility] [address] [place] [address] [employer] Services Manager: Iraida Espinoza M.D. Ph.D.; CLIA# [id number] ID Date Data Source [id number] 08/18/2021 01:07:00 PM EDT [facility] Name Value Range Interpretation Code Description Data Ania rce(s) Supporting Document(s) Lead,Blood (Venous) result <5.0 Normal (applies to n on-numeric results) [facility] ADDITIONAL INFORMATIO N Testing performed by Inductively Coupled Plasma-Mass Spectrometry (ICP-MS). This test was developed and its performance characteristics determined by [facility] in a manner consistent with CLIA requirements. This test has not been cleared or approved by the U.S. Food and Drug Administration. PBD[facility] Patient Street Normal (applies to non-nume carmelita results) [facility] Normal (applies to non-numeri c results) [facility] Normal (applies to non-numer ic results) [facility] PBDV Patient Zip [address] Normal (applies to non-numeric results) [facility] County Normal (applies to non-nume carmelita results) [facility] Phone Normal (applies to non-numer ic results) [facility] Race Normal (applies to non-numeri c results) [facility] Ethnicity Normal (applies to non-n umeric results) [facility] Occupation Normal (applies to non- numeric results) [facility] Employer Normal (applies to non-nu meric results) [facility] Name Normal (applies to non-numer ic results) [facility] PBDV Provider Street Normal (applies to non-num radha results) [facility] PBDV Provider City Normal (applies to non-numer ic results) [facility] PBDV Provider State Normal (applies to non-nume carmelita results) [facility] PBDV Provider Zip [address] Normal (applies to non-numeri c results) [facility] PBDV Provider Phone Normal (applies to non-nume carmelita results) [facility] Normal (applies to no n-numeric results) [facility] Test Performed by: [facility] [address] [place] [address] [employer] Manager: Iraida Espinoza M.D. Ph.D.; CLIA# [id number] ID Date Data Source [id number] 08/15/2021 10:03:00 PM EDT [facility] Name Value Range Interpretation Code Description Data Ania rce(s) Supporting Document(s) Hepatitis C Virus Ab result Nonreactive Norm al (applies to non-numeric results) [facility] Test Performed By: [facility] [address] [place] [address] Director: Manuel Arias MD ID Date Data Source [id number] 08/15/2021 10:03:00 PM [facility] Name Value Range Interpretation Code Description Data Ania rce(s) Supporting Document(s) Rubella Ab,IgG result >10.0 Normal (applies to non-nu meric results) [facility] Test Performed By: [facility] [address] [place] [address] Director: Manuel Arias MD Interpretation of Results Less than 5.0 IU/mL - Negative for IgG antibodies to Rubella virus 5.0 - 9.9 IU/mL - Equivocal. Suggest repeat testing on new sample 10.0 IU/mL or greater - Positive for IgG antibodies to Rubella virus ID Date Data Source [id number] 08/15/2021 10:03:00 PM T [facility] Name Value Range Interpretation Code Description Data Ania rce(s) Supporting Document(s) Syphilis Serology result Nonreactive Normal (applies to non-numeric results) [facility] Test Performed By: [place] [address] Director: Manuel Arias MD ID Date Data Source [id number] 08/15/2021 10:03:00 PM EDT [facility] Value Range Interpretation Code Description Data Ania rce(s) Supporting Document(s) HIV Screen result Nonreactive Normal (applies to non-numer ic results) [facility] Test Performed By: [place] [address] Director: Manuel Arias MD ID Date Data Source [id number] 08/15/2021 10:03:00 PM EDT [facility] Value Range Interpretation Code Description Data Ania rce(s) Supporting Document(s) Hep Bs Ag result T-Test Nonreactive Normal (applies to non -numeric results) [facility] Test Performed By: [place] [address] Director: Manuel Arias MD ID Date Data Source [id number] 08/15/2021 09:47:00 PM EDT [facility] Value Range Interpretation Code Description Data Ania rce(s) Supporting Document(s) Hep C Ab-T Test Nonreactive Normal (applies to non-numeric results) [facility] Test Performed By: [place] [address] Director: Manuel Arias MD ID Date Data Source [id number] 08/15/2021 09:47:00 PM EDT [facility] Value Range Interpretation Code Description Data Ania rce(s) Supporting Document(s) Rubella Ab,IgG >10.0 Normal (applies to non-numeric r esults) [facility] Test Performed By: [place] [address] Director: Manuel Arias MD Interpretation of Results Less than 5.0 IU/mL - Negative for IgG antibodies to Rubella virus 5.0 - 9.9 IU/mL - Equivocal. Suggest repeat testing on new sample 10.0 IU/mL or greater - Positive for IgG antibodies to Rubella virus ID Date Data Source [id number] 08/15/2021 09:47:00 PM EDT [facility] Value Range Interpretation Code Description Data Ania rce(s) Supporting Document(s) Hep Bs Ag Result T-Test Nonreactive Normal (applies to non -numeric results) [facility] Test Performed By: [facility] [address] [place] [address] Director: Manuel Arias MD ID Date Data Source [id number] 08/15/2021 09:47:00 PM EDT [facility] Value Range Interpretation Code Description Data Ania rce(s) Supporting Document(s) HIV 1/2 Ab p24 Ag Screen Nonreactive Normal (applies to non-numeric results) [facility] Test Performed By: [facility] [address] [place] [address] Director: Manuel Arias MD ID Date Data Source [id number] 08/15/2021 09:47:00 PM EDT [facility] Value Range Interpretation Code Description Data Ania rce(s) Supporting Document(s) Syphilis Serology Nonreactive Normal (applies to non-numer ic results) [facility] Test Performed By: [facility] [address] [place] [address] Director: Manuel Arias MD ID Date Data Source [id number] 08/15/2021 08:29:00 PM EDT [facility] Value Range Interpretation Code Description Data Ania rce(s) Supporting Document(s) TS ABO result Normal (applies to non-numeric resul ts) [facility] TS Rh result Normal (applies to non-numeric result s) [facility] TS ABS result Normal (applies to non-numeric resul ts) [facility] ID Date Data Source [id number] 08/15/2021 12:59:00 PM EDT [facility] Name Value Range Interpretation Code Description Data Ania rce(s) Supporting Document(s) Thyroid Stimulate Hormone TSH 0.358-3.74 Below low normal [facility] ID Date Data Source [id number] 08/15/2021 12:59:00 PM EDT [facility] Name Value Range Interpretation Code Description Data Ania rce(s) Supporting Document(s) Beta HCG,Quantitative 021992 mIU/mL Normal (applies to non -numeric results) [facility] Non-preganant:0-5 mIU/mL 0. 2- Week: 5-50 mIU/mL 1-2 Weeks: 50-500 mIU/mL 2-3 Weeks: 100-5,000 mIU/mL 3-4 Weeks: 500-10,000 mIU/mL 4-5 Weeks: 1,000-50,000 mIU/mL 5-6 Weeks: 10,000-100,000 mIU/mL 6-8 Weeks: 15,000-200,000 mIU/mL 2-3 Months: 10,000-100,000 mIU/mL ID Date Data Source [id number] 08/15/2021 12:27:00 PM [facility] Name Value Range Interpretation Code Description Data Ania rce(s) Supporting Document(s) White Blood Count 3.5-10.5 Normal (applies to non-numeri c results) [facility] Red Blood Count 3.90-5.00 Below low normal [facility] Hemoglobin 12.0-15.5 Below low normal [facility] Hematocrit 34.9-44.5 Below low normal [facility] Mean Corpuscular Volume 81.2-95.1 Above high normal [facility] Mean Corpuscular Hgb 25.6-32.2 Above high normal [facility] Mean Corpuscular Hgb Conc 32.0-36.0 Normal (applies to no n-numeric results) [facility] Red Cell Distribution Width 11.9-15.5 Normal (appli es to non-numeric results) [facility] Platelet Count 106 x10 3/uL 150-450 Below low normal [facility] Mean Platelet Volume 9.4-12.4 Normal (applies to non-num radha results) [facility] Neutrophils% (Auto) 31.0-71.0 Normal (applies to non-nume carmelita results) [facility] Lymphocytes% (Auto) 20.0-55.0 Normal (applies to non-nume carmelita results) [facility] Monocytes% (Auto) 4.0-12.0 Normal (applies to non-numeri c results) [facility] Eosinophils% (Auto) 1.0-8.0 Normal (applies to non-nume carmelita results) [facility] Basophils% (Auto) 0.0-2.0 Normal (applies to non-numeri c results) [facility] Immature Granulocytes% (Auto) 0.0-2.0 Normal (tae lies to non-numeric results) [facility] Neutrophils# (Auto) 1.50-6.20 Normal (applies to non-nume carmelita results) [facility] Lymphocytes# (Auto) 1.20-4.00 Normal (applies to non-nume carmelita results) [facility] Monocytes# (Auto) 0.00-0.90 Normal (applies to non-numeri c results) [facility] Eosinophils# (Auto) 0.00-0.50 Normal (applies to non-nume carmelita results) [facility] Basophils# (Auto) 0.00-0.20 Normal (applies to non-numeri c results) [facility] Immature Granulocytes# (Auto) 0.00-7.00 No rmal (applies to non-numeric results) [facility] Slide Reviewed By Normal (applies to non-numeri c results) [facility] Slide has been reviewed and findings con firmed by a technologist/structures technician. ID Date Data Source [id number] 08/16/2021 10:19:00 AM EDT [facility] Imaging Services Department Imaging Report [address] [place] [id number] %(RAD)RES..mtdd.print.filter("line") Name: AMBIKA SOTO : 1990 Age/Sex: 31F Ordering Provider: GENESIS Isidro Med Rec #: [id number] Reg Status: DEP REF Room #: Date of Service: 08/15/21 Report Number: [id number] cc:GENESIS Isidro; PCP None Send Report To: [id number] US/US OB First Trimester Reason for exam: DATING,VIABILITY FINDINGS: Earliest U/S Today = EDC 03-03-22 EGA= 11 wks 3 days Gestation: Single. 1. Gestational sac size: 52.4 x 41.7 x 69.7 mm = 54.6 mm, AVw 3d. 2. [place] Rump Length: 46.5 mm = 11w 3d EDC: 03-03-22 3. Heart Rate: 160 bpm. 4. Placental Location: Undetermined. 5. Presentation: Undetermined. 6. Regular Shaped Gestational Sac: Yes 7. Adequate Amniotic Fluid: Yes 8. Yolk Sac: Yes 9. Cervical length: 45.4 mm. 10. Right ovary measures 3.0 x 3.1 x 2.6 cm. 11. Left ovary measures 2.9 x 2.0 x 2.7 cm. IMPRESSION: Single, live, intrauterine gestation at 11w 3d +/- 1w. EDC is 03-03-2022. heart rate is 160 bpm. REPORT DICTATED BY NAREN LINDQUIST, REVIEWED AND SIGNED BY DR. HAMEED. REPORT SIGNATURE ON FILE Reported By: Naren Hameed MD <Electronically signed by Love Hameed MD> 08/16/21 1144 Dictation Date/Time: 08/15/21 1251 Transcribed Date/Time: 08/16/21 1019 Directional Driller: BECKI Name Value Range Interpretation Code Description Data Ania rce(s) Supporting Document(s) ID Date Data Source [id number] 08/15/2021 11:37:00 PM EDT [facility] Name Value Range Interpretation Code Description Data Ania rce(s) Supporting Document(s) Amphetamines, UDS7 Lynqwt=1636 Very abnormal (applies to n on-numeric units [facility] Please Note: 01 Amphetamine test includes Amphetamine and Methamphetamine. Amphetamine Positive A 01 Amphetamine Conf, MS, UR 635 ng/mL Xvrjgy=032 01 Methamphetamine Positive A 01 Methamphetamine Conf, MS, U 1348 ng/mL Xhgalk=357 01 Barbiturates, UDS7 Gpyady=446 Normal (applies to non-numer ic results) [facility] Benzodiazepines, UDS7 Exrbkr=048 Normal (applies to non-nu meric results) [facility] Cannabinoid, UDS7 Cutoff=50 Very abnormal (applies to non -numeric units [facility] Carboxy THC Conf, MS, UR 220 ng/mL Cutoff=15 01 Cocaine, UDS7 Idbuwx=340 Normal (applies to non-numeric re sults) [facility] Opiates, UDS7 Dxszlv=278 Normal (applies to non-numeric re sults) [facility] Opiate test includes Codeine and Morphin e only. Phencyclidine, UDS7 Cutoff=25 Normal (applies to non-nume carmelita results) [facility] Performed at: RN - [facility] [place] [id number] [employer] Manager: Mallorie Adkins MD, Phone: [phone] ID Date Data Source [id number] 08/15/2021 10:37:00 PM EDT [facility] Name Value Range Interpretation Code Description Data Ania rce(s) Supporting Document(s) Amphetamines,UDS7 Vjiysc=0318 Very abnormal (applies to no n-numeric units [facility] Please Note: 01 Amphetamine test includes Amphetamine and Methamphetamine. Amphetamine Positive A 01 Amphetamine Conf, MS, UR 635 ng/mL Nwrbkn=615 01 Methamphetamine Positive A 01 Methamphetamine Conf, MS, U 1348 ng/mL Msjcsm=392 01 Barbiturates,UDS7 Axwlgb=954 Normal (applies to non-numeri c results) [facility] Benzodiazepines,UDS7 Jhngho=064 Normal (applies to non-num radha results) [facility] Cannabinoid,UDS7 Cutoff=50 Very abnormal (applies to non- numeric units [facility] Carboxy THC Conf, MS, UR 220 ng/mL Cutoff=15 01 Cocaine,UDS7 Hnvmax=141 Normal (applies to non-numeric res ults) [facility] Opiates,UDS7 Polmht=421 Normal (applies to non-numeric res ults) [facility] Opiate test includes Codeine and Morphin e only. Phencyclidine,UDS7 Cutoff=25 Normal (applies to non-numer ic results) [facility] Performed at: [facility] [address] [id number] [employer] Manager: Mallorie Adkins MD, Phone: [phone] ID Date Data Source [id number] 08/11/2021 05:44:00 PM EDT [facility] Name Value Range Interpretation Code Description Data Ania rce(s) Supporting Document(s) Loretta species Negative Normal (applies to non-numeric results) [facility] Gardnerella vaginalis Negative Very abnormal (applies to non-numeric units [facility] Trichomonas vaginalis Negative Normal (applies to non-nu meric results) [facility] Performed at: [facility] [address] [id number] [employer] Manager: Mallorie Adkins MD, Phone: [phone] ID Date Data Source [id number] 08/11/2021 04:33:00 PM EDT [facility] Name Value Range Interpretation Code Description Data Ania rce(s) Supporting Document(s) AFFDNA Loretta species Negative Normal (applies to non-n umeric results) [facility] AFFDNA Gardnerella vaginalis Negative Lionel y abnormal (applies to non-numeric units [facility] AFFDNA Trichomonas vaginalis Negative Normal (appl ies to non-numeric results) [facility] Performed at: [address] [id number] [employer] Manager: Mallorie Adkins MD, Phone: [phone] ID Date Data Source [id number] 08/11/2021 04:31:00 PM EDT [facility] Name Value Range Interpretation Code Description Data Ania rce(s) Supporting Document(s) Chlamydia,Urine result Negative Normal (applies to non-n umeric results) [facility] Test Performed By: [facility] [address] [place] [address] Director: Manuel Arias MD . GC Urine result Negative Normal (applies to non-numeric results) [facility] Test Performed By: [facility] [address] [place] [address] Director: Manuel Arias MD . Methodology: Second generation nucleic acid amplification. ID Date Data Source [id number] 08/11/2021 03:58:00 PM EDT [facility] Name Value Range Interpretation Code Description Data Ania rce(s) Supporting Document(s) Chlamydia,Urine Negative Normal (applies to non-numeric results) [facility] Test Performed By: [facility] [address] [place] [address] Director: Manuel Arias MD . GC Urine Negative Normal (applies to non-numeric resul ts) [facility] Test Performed By: [facility] [address] [place] [address] Director: Manuel Arias MD . Methodology: Second generation nucleic acid amplification. ID Date Data Source [id number] 08/11/2021 11:14:00 AM EDT [facility] spital Procedure Performed By: [facility] [address] [place] [address] Director: Polina Arias MD Name Value Range Interpretation Code Description Data Ania rce(s) Supporting Document(s) Urine Culture [facility] ID Date Data Source [id number] 08/11/2021 11:07:00 AM EDT [facility] Procedure Performed By: [facility] [address] [place] [address] Director: Polina Arias MD Name Value Range Interpretation Code Description Data Ania rce(s) Supporting Document(s) Urine Culture [facility] ID Date Data Source [id number] 08/10/2021 07:30:00 AM EDT [facility] Name Value Range Interpretation Code Description Data Ania rce(s) Supporting Document(s) Bupren Screen,Ur wRfx LCI SO Negative Normal (appl ies to non-numeric results) [facility] Test Performed By: [facility] [address] [place] [address] Director: Manuel Arias MD Therapeutic Drug Threshold for Buprenorphine: 5 ng/mL All positive findings are presumptive and unconfirmed. Confirmation of positive Buprenorphine is automatically reflexed and sent to reference laboratory. Unconfirmed results must not be used for non- medical purposes (i.e. pre-employment and legal purposes) ID Date Data Source [id number] 08/10/2021 12:47:00 AM EDT [facility] Name Value Range Interpretation Code Description Data Ania rce(s) Supporting Document(s) Bupren Scrn,Ur wRfx LCI SO res Negative N ormal (applies to non-numeric results) [facility] Test Performed By: [facility] [address] [place] [address] Director: Manuel Arias MD Therapeutic Drug Threshold for Buprenorphine: 5 ng/mL All positive findings are presumptive and unconfirmed. Confirmation of positive Buprenorphine is automatically reflexed and sent to reference laboratory. Unconfirmed results must not be used for non- medical purposes (i.e. pre-employment and legal purposes) Procedure Social History Code Duration Value Status Description Data Source(s ) Smoking 01/05/2021 12:00:00 AM EST Unknown if ever smoked comp leted Unknown if ever smoked [facility] ([facility] Smoking 12/28/2020 12:00:00 AM EST Unknown if ever smoked comp leted Unknown if ever smoked [facility] ([facility]) Smoking 12/16/2020 12:00:00 AM EST Unknown if ever smoked comp leted Unknown if ever smoked [facility] ([facility]) Smoking 12/13/2020 12:00:00 AM EST Unknown if ever smoked comp leted Unknown if ever smoked [facility] ([facility]) Smoking 12/01/2020 12:00:00 AM EST Unknown if ever smoked comp leted Unknown if ever smoked [facility] ([facility]) Vital Signs ID Date Data Source UNK Name Value Range Interpretation Code Description Data Source(s) Body height 0.00 in Normal (applies to non-numeric resu lts) 0.00 in [facility] ([facility]) Body weight Measured 0.00 lbs Normal (applies to n on-numeric results) 0.00 lbs [facility] ([facility]) Body mass index (BMI) [Ratio] 0.00 kg/m2 No rmal (applies to non-numeric results) 0.00 kg/m2 [facility] ([facility]) Systolic blood pressure 0 mm[Hg] Normal (applies t o non-numeric results) 0 mm[Hg] [facility] ([facility]) Diastolic blood pressure 0 mm[Hg] Normal (applies to non-numeric results) 0 mm[Hg] [facility] ([facility]) Systolic blood pressure 115 mm[Hg] 115 mm[Hg] [facility] ([facility]) Diastolic blood pressure 75 mm[Hg] 75 mm[Hg] [facility] ([facility]) Heart rate 94 /min 94 /min [facility] ([facility]) Respiratory rate 18 /min 18 /min [facility] ( [facility]) Body temperature 98.1 [degF] 98.1 [degF] [facility] Body weight 102.00 [lb_av] 102.00 [lb_av] [facility] ([facility]) ID Date Data Source [id number] 09/21/2021 08:50:00 AM EDT [facility] Name Value Range Interpretation Code Description Data Source(s) Weight (Calculated Kilograms) 46.[address] [facility] Height (Calculated Centimeters) 157.[address] [facility] Body Mass Index (BMI) 18.8 18.8 [facility] ID Date Data Source [id number] 08/22/2021 03:54:00 PM [facility] Name Value Range Interpretation Code Description Data Source(s) Weight (Calculated Kilograms) 46.[address] [facility] Height (Calculated Centimeters) 157.[address] [facility] Body Mass Index (BMI) 18.8 18.8 [facility] ID Date Data Source [id number] 08/15/2021 10:37:00 PM [facility] Name Value Range Interpretation Code Description Data Source(s) Weight (Calculated Kilograms) 46.[address] [facility] Height (Calculated Centimeters) 157.[address] [facility] Body Mass Index (BMI) 18.8 18.8 [facility] ID Date Data Source [id number] 08/25/2021 08:29:00 AM [facility] Name Value Range Interpretation Code Description Data Source(s) Weight (Calculated Kilograms) 46.[address] [facility] Height (Calculated Centimeters) 157.[address] [facility] Body Mass Index (BMI) 18.8 18.8 [facility]
[2021-10-03 11:19] LABS: BASO # 0.1 10^3/uL (0.0-0.2); BASO % 0.4 % (0.0-1.0); EOS # 0.3 10^3/uL (0.0-0.5); HEMATOCRIT 32.2 % (36.0-47.0); HEMOGLOBIN 10.7 g/dl (12.0-15.5); LYMPH # 2.3 10^3/uL (1.5-5.0); LYMPH % 17.2 % (24.0-44.0); MEAN CORPUSCULAR HEMOGLOBIN 32.7 pg (27.0-33.0); MEAN CORPUSCULAR HGB CONC 33.2 g/dl (32.0-36.5); MEAN CORPUSCULAR VOLUME 98.5 fl (80.0-96.0); MONO # 0.7 10^3/uL (0.0-0.8); MONO % 5.5 % (2.0-8.0); NEUTROPHILS # 9.9 10^3/uL (1.5-8.5); NEUTROPHILS % 73.4 % (36.0-66.0); PLATELET COUNT, AUTOMATED 367 10^3/uL (150-450); RED BLOOD COUNT 3.27 10^6/uL (4.00-5.40); WHITE BLOOD COUNT 13.4 10^3/uL (4.0-10.0)
[2021-10-03 11:50] VITALS: BP 127/70
== END 2021-10-03 11:53 | disposition home or self-care (01) ==
LOC: M ED 08:18
DX: O9A.212 Injury, poisoning and certain other consequences of external causes complicating pregnancy, second trimester (principal); O9A.312 Physical abuse complicating pregnancy, second trimester; Y92.9 Unspecified place or not applicable; Y93.9 Activity, unspecified; Y99.9 Unspecified external cause status; O99.332 Smoking (tobacco) complicating pregnancy, second trimester; Z3A.18 18 weeks gestation of pregnancy; O44.42 Low lying placenta NOS or without hemorrhage, second trimester

== ENCOUNTER 2022-02-24 12:45 | Outpatient (CLI) | payer OTHER | END 2022-02-24 14:00 | disposition left against medical advice (07) | LOC: M LDO 12:45 | PROVIDERS: ATTEND Obstetrics & Gynecology | DX: O26.893 Other specified pregnancy related conditions, third trimester (principal); R10.30 Lower abdominal pain, unspecified; O99.323 Drug use complicating pregnancy, third trimester; F12.20 Cannabis dependence, uncomplicated; O99.343 Other mental disorders complicating pregnancy, third trimester; F41.9 Anxiety disorder, unspecified; Z3A.38 38 weeks gestation of pregnancy ==

== ENCOUNTER → 2022-03-07 | Outpatient (CLI) | payer MEDICAID | LOC: M OUTALCOH 08:09 | PROVIDERS: ATTEND Psychiatry & Neurology Psychiatry | DX: Z02.9 Encounter for administrative examinations, unspecified (principal) ==

== ENCOUNTER 2022-03-15 09:00 | Outpatient (RCR) | payer MEDICAID | END 2022-03-17 | LOC: M OUTALCOH 09:00 | PROVIDERS: ATTEND Psychiatry & Neurology Psychiatry | DX: F12.20 Cannabis dependence, uncomplicated (principal); Z72.0 Tobacco use ==

== ENCOUNTER 2022-04-12 09:00 | Outpatient (RCR) | payer MEDICAID | END 2022-04-17 | LOC: M OUTALCOH 09:00 | PROVIDERS: ATTEND Psychiatry & Neurology Psychiatry | DX: F14.20 Cocaine dependence, uncomplicated (principal); F10.10 Alcohol abuse, uncomplicated; F12.10 Cannabis abuse, uncomplicated ==

== ENCOUNTER → 2022-05-17 | Outpatient (RCR) | payer MEDICAID | LOC: M OUTALCOH 04-26 09:06 | PROVIDERS: ATTEND Psychiatry & Neurology Psychiatry | DX: F14.20 Cocaine dependence, uncomplicated (principal); F10.10 Alcohol abuse, uncomplicated; F12.10 Cannabis abuse, uncomplicated ==

== ENCOUNTER → 2022-11-30 | Outpatient (REF) | payer MEDICAID ==
[2022-11-30 15:52] LABS: APPEARANCE, URINE MANUAL CLEAR (CLEAR); COLOR, URINE MANUAL YELLOW (YELLOW)
[2022-11-30 15:53] LABS: BILIRUBIN, URINE MANUAL NEGATIVE (NEGATIVE); BLOOD URINE MANUAL NEGATIVE (NEGATIVE); GLUCOSE, URINE (UA) MANUAL NEGATIVE (NEGATIVE); KETONE, URINE MANUAL 1+ mg/dL (NEGATIVE); LEUKOCYTE ESTERASE, URINE MAN TRACE (NEGATIVE); NITRITE, URINE MANUAL NEGATIVE (NEGATIVE); PROTEIN, URINE MANUAL TRACE mg/dL (NEGATIVE); UROBILINOGEN, URINE MANUAL 1 MG mg/dl (NORMAL)
[2022-11-30 16:11] LABS: BACTERIA, URINE SMALL AMOUNT; HYALINE CAST, URINE NONE SEEN /lpf (0-1); MUCUS, URINE LARGE AMOUNT (NEGATIVE); RBC, URINE 0-1 /hpf (0-3); SQUAMOUS EPITHELIAL CELL URINE LARGE AMOUNT /hpf (SMALL AMT)
[2022-11-30 17:30] LABS: GC DNA AMPLIFICATION POSITIVE (NEGATIVE)
== END ==
LOC: M LAB REF 12:45
PROVIDERS: ATTEND Physician Assistant Medical
DX: Z11.3 Encounter for screening for infections with a predominantly sexual mode of transmission (principal)

== ENCOUNTER 2024-03-05 13:40 | Emergency (ER) | payer MEDICAID, OTHER, SELFPAY ==
[~2024-03-05] VITALS: Ht 157.5 cm; Wt 52.3 kg
[~2024-03-05 13:40] MED LIST changes: -BENZ-52 PO; +BENZ1TAB5 PO
[2024-03-05] MEDS: ACETAMINOPHEN TAB 650MG DOSE (2X325MG) PO ONE (17:55)
[2024-03-05 18:20] VITALS: BP 153/74; TEMP 97.8; O2SAT 100
== END 2024-03-05 18:25 | disposition home or self-care (01) ==
LOC: M ED 13:40
DX: S06.0X0A Concussion without loss of consciousness, initial encounter (principal); S05.12XA Contusion of eyeball and orbital tissues, left eye, initial encounter; M54.50 Low back pain, unspecified; Y92.9 Unspecified place or not applicable; Y93.9 Activity, unspecified; Y99.9 Unspecified external cause status; Y04.2XXA Assault by strike against or bumped into by another person, initial encounter; J45.909 Unspecified asthma, uncomplicated; F17.210 Nicotine dependence, cigarettes, uncomplicated; F10.10 Alcohol abuse, uncomplicated